=== PATIENT | female | born 1940 | race Caucasian/White ===

== ENCOUNTER 2017-08-18 13:55 | Inpatient (IN) | payer OTHER, MEDICARE ==
[~2017-08-18] VITALS: Ht 157.5 cm; Wt 61.3 kg
[~2017-08-18 13:55] MED LIST: ALENDRONATE SOD70 M1 PO; AMLODIPINE BESY10 M1 PO; CALCIUM600 M3 PO; EPIPEN 2-PAK1 MG/ML IM; EPIPEN ADULT A0.3 MG IM; LEVOTHYROXINE112 MCG PO; LIPITOR10 M1 PO; LOSARTAN POTAS100 M1 PO; METAMUCIL1 PAC PO; PAXIL20 M1 PO; PREDNISONE10 MG PO
--- NOTE | 2017-08-18 14:10 | ED GENERAL ADULT ---
History of Present Illness General Chief Complaint: Lower Extremity Problems Stated Complaint: LEFT SIDE WEAKNESS Vital Signs & Intake/Output Vital Signs & Intake/Output Vital Signs Date Time Temp Pulse Resp B/P B/P Pulse O2 O2 Flow FiO2 Mean Ox Delivery Rate 08/18 1401 98.8 89 16 182/86 99 Room Air Allergies Coded Allergies: MDX - Bee Venom (Bee Venom) (BEES 01/27/11) MDX - Glycerin (Glycerin) (UNKNOWN 11/04/13) Reconcile Medications Alendronate Sodium 70 MG TAB 1 TAB PO QW BONE HEALTH (Reported) Amlodipine Besylate 10 MG TABLET 1 TAB PO DAILY BP (Reported) Atorvastatin Calcium (Lipitor) 10 MG TABLET 1 TAB PO DAILY CHOLESTEROL ( Reported) Calcium/Vitamin D (Calcium + D) 600 MG/200 IU TAB 1 TAB PO BID SUPPLEMENT ( Reported) Epinephrine (Epipen 2-Raza Auto-Injector) 1 MG/ML KIT 0.3 mg IM PRN ANAPHYLAXIS Levothyroxine Sodium 0.112 MG TAB 1 TAB PO DAILY AC THYROID (Reported) Losartan Potassium 100 MG TABLET 1 TAB PO DAILY BP (Reported) PAROXETINE HCL (Paxil) 40 MG TABLET 1 TAB PO DAILY DEPRESSION (Reported) Psyllium Hydrophylic Muciloid (Metamucil Packet) 3.4 GRAM POWD.PACK 1 PAC PO DAILY CONSTIPATION (Reported) Triage Note: PT ARRIVED BY EMS WITH C/O LEFT LEG WEAKNESS, "I FELT LIKE MY LEG WAS DRAGGING WHEN WALKING" PT STATES SHE FELT THE LEG WEAKNESS YESTERDAY WHILE SHOPPING, TODAY SHE FELL 3 TIMES AGAINST FURNITURE BECAUSE HER LEG WAS WEAK. DENIES HEAD INJURY WITH FALL, REPORT FEELING DIZZY EARLIER. Past History Travel History Traveled to [place] past 21 day No Medical History Neurological: TRANSIENT AMNESIA Cardiovascular: hypertension, hyperlipidemia Renal: urinary incontinence Endocrine: hypothyroidism Psychosocial History Who do you live with Spouse Services at Home None What is your primary language [place]i Tobacco Use: Quit >30 days ago ETOH Use: occasional use Illicit Drug Use: denies illicit drug use Departure Departure Condition: Stable Referrals: Dav DEMPSEY,Espinoza Cash (PCP/Family) Departure Forms: Customer Survey General Discharge Information
[2017-08-18] MEDS ORDERED: ARICEPT5 M1 PO (14:31)
[2017-08-18] MEDS ORDERED: VITAMIN B-121000 MC3 PO (14:33)
[2017-08-18] MEDS ORDERED: EPIPEN0.3 MG/0.1 IM (14:34)
[2017-08-18 14:53] LABS: ABSOLUTE BASOPHIL COUNT 0 /CUMM (0.0-0.2); ABSOLUTE EOSINOPHIL COUNT 0.1 /CUMM (0.0-0.7); ABSOLUTE GRANULOCYTE CT 4.2 /CUMM (1.4-6.5); ABSOLUTE MONOCYTE COUNT 0.8 /CUMM (0.10-0.60); BASOPHIL % 0.4 % (0.0-2.0); EOSINOPHIL % 1.3 % (0-5); HEMATOCRIT 39.8 % (37-47); MEAN CORPUSCULAR HGB CONC 33.7 G/DL (33.0-37.0); MEAN PLATELET VOLUME 7.6 FL (7.4-10.4); PLATELET COUNT 278 /CUMM (130-400); RBC DISTRIBUTION WIDTH 14.6 % (11.5-14.5); RED BLOOD CELL CT 4.32 /CUMM (4.20-5.40); WHITE BLOOD CELL COUNT 7.2 /CUMM (4.8-10.8)
--- NOTE | 2017-08-18 16:37 | CT SCAN REPORT ---
EXAMINATION: CT ANGIOGRAM OF THE HEAD CT ANGIOGRAM OF THE NECK CLINICAL INFORMATION: Left weakness, ataxic gait and dizziness. COMPARISON: A post contrast CT scan of the head was obtained. None. TECHNIQUE: A noncontrast axial CT scan was obtained. Test bolus series followed by intravenous administration 95 mL of Optiray 320. Helical imaging was performed in the axial plane from the mediastinum to the skull vertex. The degree of stenosis is based off NASCET criteria. The data was processed at the histology technologist workstation for generation of MIP images. Three-dimensional volume rendered reformatted images were also generated at an offline 3-D workstation. DLP: 1563.52 mGy-cm FINDINGS: CT Head: There is no evidence of acute intracranial hemorrhage or territorial infarction. No abnormal mass-effect or midline shift is seen. Agrawal to white matter differentiation is well preserved. No extra-axial fluid collections are identified. The ventricles are normal in size. There are mild areas of low attenuation in the periventricular and subcortical white matter, consistent with chronic microvascular ischemic change. There are areas of low attenuation in the basal ganglia bilaterally, which may be consistent with lacunar infarcts. On the postcontrast images there is intense and uniform enhancement in the head of the right caudate nucleus, as well as in the anterior aspect of the right putamen. These do not have significant corresponding abnormal density on the noncontrast images. The findings may be consistent with enhancement in subacute areas of infarction or an atypical venous malformation. No other abnormal enhancement is noted elsewhere. There are no acute osseous findings. There is hyperostosis frontalis interna. The soft tissues are unremarkable. The mastoid air cells and visualized portions of the paranasal sinuses are well-aerated. CTA Neck: There is a four-vessel aortic arch, and the left vertebral artery arises directly off the aortic arch, a normal variant. There are atheromatous calcifications at the origin of the left subclavian artery as well as of the arch itself. The brachiocephalic and left common carotid arteries appear normal. There are also atheromatous calcifications at the origin of the right subclavian artery. The common carotid arteries bilaterally are widely patent. There are mild atheromatous calcifications at the carotid bifurcations bilaterally, but there is no significant stenosis. The cervical internal carotid arteries are slightly tortuous but are patent throughout the neck extending intracranially. As described above, the left vertebral artery arises directly off the aortic arch. The origin of the right vertebral artery has a minimal amount of atheromatous calcification. The right vertebral artery is dominant. The vertebral arteries are patent throughout their cervical course extending intradurally. Nonvascular: There is patchy ground glass opacification in the lateral right upper lobe. The remaining lung santos appear well-aerated. The thyroid gland appears normal. There is no cervical lymphadenopathy. The submandibular and parotid glands appear normal. There are degenerative changes of the bilateral temporomandibular joints. There are [id number] multilevel spondylitic changes in the cervical spine with narrowing of intervertebral disc height, degenerative anterolistheses of C4 on C5 and C5 on C6, as well as facet arthropathy. CTA Head: In the anterior circulation, the distal internal carotid arteries within the neck appear normal. The intracranial internal carotid arteries demonstrate atheromatous calcifications in the cavernous sinuses. The internal carotid artery bifurcations appear normal. There are areas of slight irregularity of the middle cerebral arteries, most prominent in the distal M1 segment of the left middle cerebral artery, and in the proximal M2 segment of the right middle cerebral artery. The anterior cerebral arteries appear normal bilaterally. The anterior communicating artery appears normal. No aneurysms or vascular malformations are demonstrated. In the posterior circulation, the right vertebral artery is dominant. There is calcification at the proximal basilar artery, and the basilar artery has slightly irregular caliber. There is slight irregularity of the proximal P2 segments of the posterior cerebral arteries bilaterally. There are no aneurysms or vascular malformations. The venous sinuses opacify normally. IMPRESSION: 1. There is intense enhancement in the right caudate nucleus and anterior right putamen, which may be consistent with enhancement in areas of subacute infarction. An atypical venous malformation cannot be excluded. Recommend MRI scan of the brain without and with contrast for further assessment. 2. No other territorial infarcts, masses or abnormal enhancement are demonstrated. There is no evidence of hemorrhage. 3. There is no significant stenosis in the cervical and intracranial circulations, but there is mild multilevel atheromatous calcification and irregularity of the vessels as described above. 4. There is an area of ground glass opacification in the right upper lobe. This could be further assessed with chest x-ray and/or CT scan of the chest. 5. This critical result was discussed with Donny Damon by telephone on 08/18/2017 at 4:00 PM and it was ascertained that the content and urgency of the report was understood at the time of direct communication.
--- NOTE | 2017-08-18 18:00 | ED NEURO DEFICIT/STROKE ---
History of Present Illness General Chief Complaint: Lower Extremity Problems Stated Complaint: LEFT SIDE WEAKNESS Source: patient, family Exam Limitations: no limitations Vital Signs & Intake/Output Vital Signs & Intake/Output Vital Signs Date Time Temp Pulse Resp B/P B/P Pulse O2 O2 Flow FiO2 Mean Ox Delivery Rate 08/18 1909 152/82 08/18 1821 98.8 80 18 152/82 94 Room Air 08/18 1604 99.0 76 18 172/84 95 Room Air 08/18 1401 98.8 89 16 182/86 99 Room Air Allergies Coded Allergies: glycerin (UNKNOWN 08/18/17) venom-honey bee (UNKNOWN 08/18/17) Reconcile Medications Amlodipine Besylate 10 MG TABLET 1 TAB PO DAILY HEART (Reported) Atorvastatin Calcium (Lipitor) 10 MG TABLET 1 TAB PO DAILY CHOLESTEROL ( Reported) Calcium (Elemental-Fr Calcarb) (Calcium) 600 MG CALCIUM (1,500 MG) TABLET 1 TAB PO DAILY SUPPLEMENT (Reported) Cyanocobalamin (Vitamin B-12) 1,000 MCG TABLET 1 TAB PO DAILY VITAMIN SUPPORT (Reported) Donepezil HCl (Aricept) 5 MG TABLET 1 TAB PO QPM DEMENTIA (Reported) Epinephrine (Epipen) 0.3 MG/0.3 ML AUTO.INJCT 1 INJ IM DAILY PRN BEE STING ( Reported) Levothyroxine Sodium 112 MCG TABLET 1 TAB PO DAILY AC THYROID (Reported) Losartan Potassium 100 MG TABLET 1 TAB PO DAILY HEART (Reported) Paroxetine HCl (Paxil) 20 MG TABLET 2 TAB PO DAILY MENTAL HEALTH (Reported) Triage Note: PT ARRIVED BY EMS WITH C/O LEFT LEG WEAKNESS, "I FELT LIKE MY LEG WAS DRAGGING WHEN WALKING" PT STATES SHE FELT THE LEG WEAKNESS YESTERDAY WHILE SHOPPING, TODAY SHE FELL 3 TIMES AGAINST FURNITURE BECAUSE HER LEG WAS WEAK. DENIES HEAD INJURY WITH FALL, REPORT FEELING DIZZY EARLIER. Triage Nurses Notes Reviewed? yes Onset: Gradual Duration: day(s): Timing: unknown Severity: moderate New Weakness: LLE Vision Problem? No Glaucoma? No Impaired Ability: unable to walk Baseline: alert, oriented x 3 Associated Symptoms: trouble walking HPI: 77-year-old female history of hypertension, cognitive decline presenting for left-sided weakness and multiple falls since yesterday. Patient states that yesterday around 2 PM she felt her left leg feel weak. Since that time she has had 3 falls, no head trauma. States that intermittently she will feel dizzy when she walks she veers to the left. Her daughter feels that her face has been drooping on the left. On arrival, she is mild to moderately hypertensive to 170s and 180s over 100. She feels scared and unsafe walking due to fear of falling. (WONG MARQUES MD) Past History Travel History Traveled to [place] past 21 day No Medical History Any Pertinent Medical History? see below for history Neurological: TRANSIENT AMNESIA Cardiovascular: hypertension, hyperlipidemia Renal: urinary incontinence Endocrine: hypothyroidism Surgical History Surgical History: non-contributory Psychosocial History Who do you live with Spouse Services at Home None What is your primary language Citizen Of [place] Tobacco Use: Quit >30 days ago ETOH Use: occasional use Illicit Drug Use: denies illicit drug use Family History Hx Contributory? No (WONG MARQUES MD) Review of Systems Review of Systems Constitutional: Reports: weakness. Denies: fever, malaise. EENTM: Denies: no symptoms. Respiratory: Denies: no symptoms. Cardiovascular: Denies: no symptoms. GI: Denies: no symptoms. Neurological/Psychological: Reports: other (Dizziness). (WONG MARQUES MD) Physical Exam Physical Exam General Appearance: well developed/nourished, no apparent distress, alert, awake Cranial Nerves: normal hearing, normal speech, PERRL Comments: General: Well appearing, well nourished Head: Atraumatic, no defomities Ears: Normal inspection, no trauma Nose: Normal inspection, no discharge or deformity Eyes: No discharge, no injection, no nystagmus CV: Normal rate, no peripheral edema Lungs: No respiratory distress, breathing non-labored GI: Abdomen soft, NT/ND, no palpable organomegaly Skin: Warm, dry Neuro: Alert, awake. CN 2-12 intact, left leg mildly weak compared to left. Finger-nose and heel-palafox intact. Gait unsteady, falls to the left requiring assistance. Psych: Mood appropriate, normal affect NIH stroke scale 0 Core Measures CVA/TIA Diagnosis: Yes NIH Stroke Scale NIH Stroke Scale Response Value Level of Consciousness alert 0 LOC Questions answers both correctly 0 LOC Commands obeys both correctly 0 Best Gaze normal 0 Visual Manjarrez no visual loss 0 Facial Paresis normal 0 Motor Arm - Left no drift 0 Motor Arm - Right no drift 0 Motor Leg - Left no drift 0 Motor Leg - Right no drift 0 Limb Ataxia no ataxia 0 Sensory normal 0 Best Language no aphasia 0 Dysarthria normal articulation 0 Extinction and Inattention no neglect 0 Total 0 Date Last Known Well: 08/17/17 Symptom Start Date: 08/17/17 Reason tPA not ordered Medical Contraindication (>24 hours, NIH score 0) Sepsis Present: No Sepsis Focused Exam Completed? No (JERALD DEMPSEY,WONG) Progress Differential Diagnosis: electrolyte imbalance, hypoglycemia, intracranial Hem., intracranial mass/tumor, stroke Plan of Care: Orders Procedure Date/time Status Heart Healthy Diet 08/19 B Active CBC WITHOUT DIFFERENTIAL 08/19 599 Active BASIC ELECTROLYTES PLUS BUN&CR 08/19 599 Active ECHOCARDIOGRAM 08/18 1917 Active PT Evaluate & Treat 08/18 1916 Active Pathway - chart 08/18 1916 Active House Staff 08/18 1916 Active Patient Data 08/18 1916 Active Code Status 08/18 1916 Active Patient Data 08/18 1838 Active Patient Data 08/18 1753 Active Misc Message 08/18 1740 Active ED Holding Orders 08/18 1740 Active Admit to inpatient 08/18 1740 Active Code Status 08/18 1740 Complete Intake & Output 08/18 1500 Active TSH REFLEX 08/18 1445 Active URINALYSIS 08/18 1435 Active TROPONIN LEVEL 08/18 1435 Active COMPREHENSIVE METABOLIC PANEL 08/18 1435 Active CBC WITHOUT DIFFERENTIAL 08/18 1435 Complete EKG 08/18 1435 Active Lab Add-on Test 08/18 UNK Active VTE Mechanical Prophylaxis 08/18 UNK Active MISTAKE 08/18 UNK Active Telemetry/Solution Director 08/18 UNK Active EKG 08/18 UNK Active Current Medications Sig/Patricio Start time Last Medication Dose Stop Time Status Admin Aspirin 81 MG DAILY 08/19 899 UNVr (Aspirin) Enoxaparin Sodium 40 MG DAILY 08/19 899 UNVr (Lovenox) Aspirin 325 MG ONCE ONE 08/18 1929 UNVr (Aspirin) 08/18 1930 Atorvastatin Calcium 80 MG 1700 08/18 1929 UNVr (Lipitor) Acetaminophen 650 MG Q6P PRN 08/18 1914 UNVr (Tylenol) Ibuprofen 600 MG Q6P PRN 08/18 1914 UNVr (Motrin) Oxycodone/ 2 TAB Q6P PRN 05/18 1915 UNVr Acetaminophen (Percocet) Laboratory Tests 08/18/17 1445: Anion Gap 9, Estimated GFR > 60, BUN/Creatinine Ratio 37.1 H, Glucose 93, Calcium 9.3, Total Bilirubin 0.5, AST 29, ALT 31, Alkaline Phosphatase 46, Troponin I < 0.01, Total Protein 6.7, Albumin 4.2, Globulin 2.5, Albumin/ Globulin Ratio 1.7, TSH &T3 &Free T4 Intrp Pending, CBC w Diff NO MAN DIFF REQ, RBC 4.32, MCV 92.0, MCH 31.0, MCHC 33.7, RDW 14.6 H, MPV 7.6, Gran % 59.0, Lymphocytes % 27.8, Monocytes % 11.5 H, Eosinophils % 1.3, Basophils % 0.4, Absolute Granulocytes 4.2, Absolute Lymphocytes 2.0, Absolute Monocytes 0.8 H, Absolute Eosinophils 0.1, Absolute Basophils 0 Diagnostic Imaging: Viewed by Me: CT Scan. Discussed w/RAD: Radiology Read. Initial ED EKG: normal intervals, normal p-waves, normal QRS complex, NSR, rate (72), PAC, Left axis deviation, no ST segment changes Comments: Pt displays subjective left sided weakness and gait instability, leaning to the left. CT/CTA ordered showing possible right sided subacute stroke. Pt remains hypertensive to 170/100. Ordered for home norvasc to lower BP gradually. Given pt's multiple falls with CT findings suggesting subacute infact, pt will require admission for BP control and potentially MRI brain +/- neurology consult and PT evaluation. (JERALD DEMPSEY,WONG) Departure Departure Time of Disposition: 1757 Disposition: STILL A PATIENT Condition: Stable Clinical Impression Primary Impression: Multiple falls Secondary Impressions: Stroke (cerebrum) Qualifiers: CVA mechanism: unspecified Qualified Code: I63.9 - Cerebral infarction, unspecified Referrals: Dav DEMPSEY,Espinoza Cash (PCP/Family) Departure Forms: Customer Survey General Discharge Information Admission Note Spoke With: Jada Mcduffie MD Documentation of Exam: Documentation of any treatments & extenuating circumstances including Concerns Regarding Discharge (functional status, medication knowledge or non-compliance, living conditions, etc.) that warrant an admission rather than observation: [Pt has CT findings consistent with stroke. She is at risk of worsening stroke leading to physical and cognitive deficits, and even . Her blood pressure needs to be closely monitored and controlled, potentially with IV medications. She would benefit from further inpatient MRI imaging and an inpatient neurology consult. Her unsteady gait makes her at risk for further falls, physical injury and .] (JERALD DEMPSEY,WONG) Departure Comments I agree with the physician's documentation above. (David SNOWDEN,Lam Seals) ED Attending Observation Initial Observation Note: I have seen and personally examined GANESH BOWLING on 08/18/17 at 1800. I agree with the current emergency department documentation. The disposition (admission or discharge) is uncertain at this time, she needs a period of observation for the following reason(s): The ED Nurse caring for this patient has been personally informed as to what the patient is being observed for. (WONG MARQUES MD)
--- NOTE | 2017-08-18 18:04 | History & Physical ---
Kathy DEMPSEY,Donny 08/18/17 2255: General Information and HPI MD Statement: I have seen and personally examined GANESH BOWLING and documented this H&P. The patient is a 77 year old F who presented with a patient stated chief complaint of [L sided weakness]. Source of Information: patient, family, old records Exam Limitations: no limitations History of Present Illness: Patient is a 77-year-old female with a PMH significant for HTN, HLD, hypothyroidism, depression, osteoporosis who presented complaining of approximately 1 day history of left leg weakness. She first noticed left leg weakness yesterday at approximately 1500 while she was shopping at [employer] She felt as though her left leg was "dragging". Her symptoms persisted and when she returned home she suffered for falls yesterday afternoon. Denies any associated chest pain, palpitations, lightheadedness, jerking motion with these falls, she did not lose consciousness and denies head strike. She states that she does feel "dizzy" and when asked to elaborate she states that she just felt unsteady when up and walking, it did not occur when she transition from sitting to standing, and she did not feel as though the room was spinning or she was lightheaded. She does not believe that she tripped either, she just feels like her leg gave out due to weakness. Today she suffered one more fall, and drove herself to her PCPs office and was from there sent to the ED. patient lives by herself, and is very active at home. Review of systems is positive for chronic diarrhea, which has been worked up in the past, nonproductive cough. Of note she suffered a tick bite last year and developed a targetoid rash and received no treatment for this. Allergies/Medications Allergies: Coded Allergies: glycerin (UNKNOWN 08/18/17) venom-honey bee (UNKNOWN 08/18/17) Home Med list Amlodipine Besylate 10 MG TABLET 1 TAB PO DAILY HEART (Reported) Atorvastatin Calcium (Lipitor) 10 MG TABLET 1 TAB PO DAILY CHOLESTEROL ( Reported) Calcium (Elemental-Fr Calcarb) (Calcium) 600 MG CALCIUM (1,500 MG) TABLET 1 TAB PO DAILY SUPPLEMENT (Reported) Cyanocobalamin (Vitamin B-12) 1,000 MCG TABLET 1 TAB PO DAILY VITAMIN SUPPORT (Reported) Donepezil HCl (Aricept) 5 MG TABLET 1 TAB PO QPM DEMENTIA (Reported) Epinephrine (Epipen) 0.3 MG/0.3 ML AUTO.INJCT 1 INJ IM DAILY PRN BEE STING ( Reported) Levothyroxine Sodium 112 MCG TABLET 1 TAB PO DAILY AC THYROID (Reported) Losartan Potassium 100 MG TABLET 1 TAB PO DAILY HEART (Reported) Paroxetine HCl (Paxil) 20 MG TABLET 2 TAB PO DAILY MENTAL HEALTH (Reported) Past History Travel History Traveled to [place] past 21 day No Medical History Neurological: dementia, TRANSIENT AMNESIA Cardiovascular: hypertension, hyperlipidemia Gastrointestinal: chronic diarrhea Renal: urinary incontinence Endocrine: hypothyroidism Surgical History Surgical History: none Past Family/Social History Family History Relations & Conditions if any Relation not specified for: *No pertinent family history Psychosocial History Where do you live? Home Who Do You Live With? self Services at Home: None Primary Language: Guyanese Smoking Status: Former Smoker (20 year hx) ETOH Use: occasional use Illicit Drug Use: denies illicit drug use Functional Ability ADLs Independent: dressing, eating, toileting, bathing. Ambulation: independent IADLs Independent: shopping, housework, finances, food prep, telephone, transportation , medication admin. Review of Systems Review of Systems Constitutional: Denies: chills, fever, weakness. Cardiovascular: Denies: chest pain, orthopena, palpitations, syncope. Respiratory: Reports: cough. Denies: orthopnea, short of breath. GI: Reports: diarrhea (chronic). Denies: abdominal pain, melena, nausea, bloody stool, vomiting. Genitourinary: Denies: discharge, dysuria, frequency. Musculoskeletal: Denies: joint pain, joint swelling, muscle pain. Skin: Denies: rash. Neurological/Psychological: Reports: dementia. Date of Last Mammogram: 12/03/15 Date of Last Colonoscopy: 04/04/10 Exam & Diagnostic Data Physical Exam General Appearance Alert, Oriented X3, Cooperative, No Acute Distress Skin Temp/Moisture Exam: Warm/Dry HEENT ecchymosis on the L forehead Cardiovascular Regular Rate, Normal S1, Normal S2, No Murmurs, regularly irregular rhythm Lungs Clear to Auscultation, Normal Air Movement Abdomen Normal Bowel Sounds, Soft, No Tenderness Neurological Normal Speech, Normal Tone, Sensation Intact, Cranial Nerves 3-12 NL, brisk lower extremity reflexex bilaterally , 6 beat clonus of the LLE, slight L facial droop, 4/5 LLE strength, 5/5 strength rest of extremities, positive babinski of LLE, Extremities No Clubbing, No Cyanosis, No Edema Last 24 Hrs of Labs/Gordon: Laboratory Tests 08/18/17 1445: Anion Gap 9, Estimated GFR > 60, BUN/Creatinine Ratio 37.1 H, Glucose 93, Calcium 9.3, Total Bilirubin 0.5, AST 29, ALT 31, Alkaline Phosphatase 46, Troponin I < 0.01, Total Protein 6.7, Albumin 4.2, Globulin 2.5, Albumin/ Globulin Ratio 1.7, Vitamin B12 Pending, Folate Pending, TSH &T3 &Free T4 Intrp Pending, CBC w Diff NO MAN DIFF REQ, RBC 4.32, MCV 92.0, MCH 31.0, MCHC 33.7, RDW 14.6 H, MPV 7.6, Gran % 59.0, Lymphocytes % 27.8, Monocytes % 11.5 H, Eosinophils % 1.3, Basophils % 0.4, Absolute Granulocytes 4.2, Absolute Lymphocytes 2.0, Absolute Monocytes 0.8 H, Absolute Eosinophils 0.1, Absolute Basophils 0 Diagnostic Data EKG Results poor ekg study, with flat rhythm strip/lead II, will repeat Other Results CTA head and neck FINDINGS: CT Head: There is no evidence of acute intracranial hemorrhage or territorial infarction. No abnormal mass-effect or midline shift is seen. Agrawal to white matter differentiation is well preserved. No extra-axial fluid collections are identified. The ventricles are normal in size. There are mild areas of low attenuation in the periventricular and subcortical white matter, consistent with chronic microvascular ischemic change. There are areas of low attenuation in the basal ganglia bilaterally, which may be consistent with lacunar infarcts. On the postcontrast images there is intense and uniform enhancement in the head of the right caudate nucleus, as well as in the anterior aspect of the right putamen. These do not have significant corresponding abnormal density on the noncontrast images. The findings may be consistent with enhancement in subacute areas of infarction or an atypical venous malformation. No other abnormal enhancement is noted elsewhere. There are no acute osseous findings. There is hyperostosis frontalis interna. The soft tissues are unremarkable. The mastoid air cells and visualized portions of the paranasal sinuses are well-aerated. CTA Neck: There is a four-vessel aortic arch, and the left vertebral artery arises directly off the aortic arch, a normal variant. There are atheromatous calcifications at the origin of the left subclavian artery as well as of the arch itself. The brachiocephalic and left common carotid arteries appear normal. There are also atheromatous calcifications at the origin of the right subclavian artery. The common carotid arteries bilaterally are widely patent. There are mild atheromatous calcifications at the carotid bifurcations bilaterally, but there is no significant stenosis. The cervical internal carotid arteries are slightly tortuous but are patent throughout the neck extending intracranially. As described above, the left vertebral artery arises directly off the aortic arch. The origin of the right vertebral artery has a minimal amount of atheromatous calcification. The right vertebral artery is dominant. The vertebral arteries are patent throughout their cervical course extending intradurally. Nonvascular: There is patchy ground glass opacification in the lateral right upper lobe. The remaining lung santos appear well-aerated. The thyroid gland appears normal. There is no cervical lymphadenopathy. The submandibular and parotid glands appear normal. There are degenerative changes of the bilateral temporomandibular joints. There are [id number] multilevel spondylitic changes in the cervical spine with narrowing of intervertebral disc height, degenerative anterolistheses of C4 on C5 and C5 on C6, as well as facet arthropathy. CTA Head: In the anterior circulation, the distal internal carotid arteries within the neck appear normal. The intracranial internal carotid arteries demonstrate atheromatous calcifications in the cavernous sinuses. The internal carotid artery bifurcations appear normal. There are areas of slight irregularity of the middle cerebral arteries, most prominent in the distal M1 segment of the left middle cerebral artery, and in the proximal M2 segment of the right middle cerebral artery. The anterior cerebral arteries appear normal bilaterally. The anterior communicating artery appears normal. No aneurysms or vascular malformations are demonstrated. In the posterior circulation, the right vertebral artery is dominant. There is calcification at the proximal basilar artery, and the basilar artery has slightly irregular caliber. There is slight irregularity of the proximal P2 segments of the posterior cerebral arteries bilaterally. There are no aneurysms or vascular malformations. The venous sinuses opacify normally. IMPRESSION: 1. There is intense enhancement in the right caudate nucleus and anterior right putamen, which may be consistent with enhancement in areas of subacute infarction. An atypical venous malformation cannot be excluded. Recommend MRI scan of the brain without and with contrast for further assessment. 2. No other territorial infarcts, masses or abnormal enhancement are demonstrated. There is no evidence of hemorrhage. 3. There is no significant stenosis in the cervical and intracranial circulations, but there is mild multilevel atheromatous calcification and irregularity of the vessels as described above. 4. There is an area of ground glass opacification in the right upper lobe. This could be further assessed with chest x-ray and/or CT scan of the chest. Assessment/Plan Assessment: Patient is a 77-year-old female with a PMH significant for HTN, HLD, hypothyroidism, depression, osteoporosis who presented complaining of approximately 1 day history of left leg weakness. Physical exam shows left lower extremity weakness, positive kind, mild left sided facial droop, clonus of the right lower extremity, brisk reflexes of the lower extremities bilaterally. Vital signs on presentation: T 98.8, P 89, RR 16, BP 182/86, saturating 99% on room air Labs: PROFESSOR OF ARCHAEOLOGY unremarkable, BUN 26, troponin <0.01 CTA head and neck showed enhancement in the right caudate nucleus and anterior right putamen Problem list #Possible CVA #Chronic medical problems including HTN, hypothyroidism, depression, osteoporosis Plan -Admit to telemetry -Continuous telemetry monitoring -Serial neuro checks -MRI head with and without chris to further assess findings of CTA head -Neurology consult placed -Echocardiogram -Repeat EKG -Begin aspirin -TSH, B12, folate -Continue home meds including levothyroxine, Aricept, statin -Hold antihypertensives and paroxetine for now -PT/OT evaluation DVT prophylaxis: Subcutaneous heparin, Alps Diet: Heart healthy diet CODE STATUS: Full code As Ranked By This Provider Problem List: 1. Stroke (cerebrum) Qualifiers CVA mechanism: unspecified Qualified Code: I63.9 - Cerebral infarction, unspecified 2. Multiple falls Core Measures/Misc (12/18) Acute Coronary Syndrome ACS Diagnosis: No Congestive Heart Failure Congestive Heart Failure Diagnosis No Cerebrovascular Accident CVA/TIA Diagnosis: Yes NIH Stroke Scale: Total 2 Date Last Known Well: 08/17/17 Time Last Known Well: 1500 Symptom Start Date: 08/17/17 Symptom Start Time: 1500 Reason tPA not ordered Medical Contraindication Swallow Evaluation Pass Current/Past Hx AFib/AFlutter No VTE (View Protocol) VTE Risk Factors Age>40 No Mechanical VTE Prophylaxis d/t N/A MechProphylax Ordered No VTE Pharm Prophylaxis d/t NA PharmProphylax ordered Sepsis (View protocol) Sepsis Present: No Ariel DEMPSEY,Brooke 08/18/171813: Exam & Diagnostic Data Last 24 Hrs of Vital Signs/I&O Vital Signs Date Time Temp Pulse Resp B/P B/P Pulse O2 O2 Flow FiO2 Mean Ox Delivery Rate 08/19 0616 98.1 81 20 142/82 96 Room Air 08/18 2211 97.7 77 20 148/114 92 08/18 2029 98.2 77 24 158/120 92 08/18 1958 98.3 80 18 158/70 93 Room Air 08/18 1909 152/82 08/18 1821 98.8 80 18 152/82 94 Room Air 08/18 1604 99.0 76 18 172/84 95 Room Air 08/18 1401 98.8 89 16 182/86 99 Room Air Intake & Output 08/19 1600 08/19 0800 08/19 0000 Intake Total Output Total Balance Patient 61.008 kg Weight Weight Bed scale Measurement Method Resident Review Statement Resident Statement: examined this patient, discussed with internal salesperson, agreed with internal salesperson Other Findings: This is a 77-year-old female w/ past medical history of hypertension, hyperlipidemia, osteoporosis, depression, hypothyroidism, remote history of amnesia and fugue state, lung nodule that has been worked up with benign findings, who comes in for chief complaint of lower extremely weakness. Per patient, yesterday she was at [facility] around 2:30 PM when she noticed that she seemed to have some difficulty ambulating. She initially attributed it to a broken shopping cart but when she was in the parking lot she noted her left leg was dragging and she had to shuffle to make it to her car. Subsequently, she went home and had 4 falls with 3 of them yesterday and 1 this AM. Denies any head strike, loss of consciousness, or loss of bladder or bowel control. She does endorse some dizziness while walking. She denies any headache, blurry vision, sore throat, recent illness, palpitation , nausea, vomiting, abdominal pain, nausea, vomiting. She does endorse chest pain w/ last episode on Monday. She said that it is exertional in nature and resolves with rest. It is happening for the past 2-3 months. She does not have a knowledge manager has never had this worked up. The pain does not radiate.She also has hx of tickbite with target rash but never treated. Physical exam as above. Highlights as follows- Cranial nerves 2-12 where normal. Strength equal and symmetric in bilateral upper extremities and sensation intact. Sensation intact in bilateral lower extremities. She did have 4-5 strength in left lower extremity and bilateral 5 strength in right lower extremity. Initially, she had a 5 beat clonus in bilateral lower extremities but upon repeat testing was only present in the right lower extremity. Reflexes are 3+ brisk and knee and ankle bilateral lower extremity and 2+ in upper extremity. CT of head and neck shows intense enhancement in the right caudate nucleus and anterior right putamen which may be consistent with enhancement in areas of subacute infarction. Additionally, an atypical venous malformation cannot be excluded. Assessment: This is a 77-year-old female with history significant for hypertension, hyperlipidemia, osteoporosis, depression, hypothyroidism, remote history of amnesia and fugue state, lung nodule that has been worked up with benign findings, who comes in for chief complaint of left lower extremity weakness with CTA suspicious for possible subacute infarction. This time the presentation is concerning for ischemic event, but cannot rule out neoplasm or unusual vascular malformation. As such patient will be admitted to telemetry floor for further management. Plan: 1. Possible CVA: * MRI with and without gadolinium * ASA * Statin * Allow permissive hypertension * Monitor on telemetry * Echo with bubble study * Neuro check * Repeat EKG * TSH * B12 * Folate * Neuro consult Hypertension: * Continue to monitor * Hold antihypertensives for permissive hypertension Hypothyroidism: * Continue home medication Depression: * Will hold her paroxetine. Dementia: * Hold Aricept fc chem ppx hh Katerina Shea 08/18/177: Attending MD Review Statement Attending Statement Attending MD Statement: examined this patient, discuss w/resident/PA/SCALLOP BINDER, agreed w/resident/PA/SCALLOP BINDER, reviewed EMR data (avail), reviewed images, amended to note Attending Assessment/Plan: CC: Left leg weakness PMH: HTN, HLD, depression, hypothyroidism, osteoporosis, dementia Patient was sent to ER by primary care physician for left leg weakness and multiple falls. Patient states that yesterday at around 3 PM when she was at [facility] she noticed that her left leg was weak and she had to drag it. After going home she fell 3 times because of left leg giving out, no head trauma, no dizziness or loss of consciousness, no palpitations or chest pain before the fall. She did not seek any medical attention for it. This morning she fell again so she went to primary care physician who suggested her to go to ER. Patient did not notice any facial weakness or drooling, drooping, double vision, blurry vision, upper extremity weakness or any other associated symptoms. Of note She had tick bite approximately one year back, had target lesion but was not treated. She is compliant with all her medications. 12 point ROS unremarkable. Patient states that she failed for dementia test sometime last year, approximately 1 month back she requested her primary care physician to start some medication and she was started on Aricept. Vitals: Temperature 99.0, pulse 89, RR 16, blood pressure 182/86, saturating 99% on room air On exam: A O 3, cooperative, no acute distress, neck supple, JVD normal, no lymphadenopathy, mucosa moist, no dependent edema, no obvious skin rashes or inflammation CVS: S1-S2, RRR. RS: Clear to auscultate bilaterally. Abdomen: Soft , NT, ND, bowel sounds present. Cranial nerves 3-12 intact, no sensory deficit, cerebellar signs negative, reflexes +3 in all extremities, left lower extremity strength 4/5, strength 5/5 in rest of the extremities. Gait unsteady secondary to left leg weakness she puts pressure more on right side CTA head and neck: 1. There is intense enhancement in the right caudate nucleus and anterior right putamen, which may be consistent with enhancement in areas of subacute infarction. An atypical venous malformation cannot be excluded. Recommend MRI scan of the brain without and with contrast for further assessment. 2. No other territorial infarcts, masses or abnormal enhancement are demonstrated. There is no evidence of hemorrhage. 3. There is no significant stenosis in the cervical and intracranial circulations, but there is mild multilevel atheromatous calcification and irregularity of the vessels as described above. 4. There is an area of ground glass opacification in the right upper lobe. This could be further assessed with chest x-ray and/or CT scan of the chest. 5. This critical result was discussed with Donny Damon by telephone on 08/18/2017 at 4:00 PM and it was ascertained that the content and urgency of the report was understood at the time of direct communication. Assessment and plan 77 year old female with history significant for HTN, HLD, ex-smoker presented for left leg weakness that started yesterday. She states that she has been dragging her left leg. She fell 4 times since the onset of weakness, no trauma or loss of consciousness. On examination the strength is decreased to 4/5 on left lower extremity with gait abnormality. She also is hyperreflexive in all extremities. CT he was obtained which showed suspected right caudate nucleus and right putamen subacute infarction but at the same time vascular malformation could not be excluded. Her NIHSS is 1, she was out of window for tPA. There is no obvious thromboembolic phenomena in major vessels on CTA head and neck. We will admit her on telemetry and get MRI with and without contrast to confirm that this is ischemia. Obtain neurology opinion + Left leg weakness : Suspected ischemic stroke + History of HTN, HLD, depression, hypothyroidism, osteoporosis, dementia - Admit to telemetry - Continuous telemetry monitoring - MRI brain with and without contrast - 2-D echocardiogram in a.m. - DVT prophylaxis - Obtain lipid profile - Continue aspirin 325 today and 81 mg tomorrow and atorvastatin 40 mg daily starting today - Swallow evaluation was normal - Neurologic consult - Serial neuro checks - Check TSH, tick panel, B12, folate - Adequate pain control - Permissive hypertension, hold amlodipine and losartan, continue rest of her medications - DVT prophylaxis - OT PT evaluation
[2017-08-18 20:29] VITALS: BP 158/120
[2017-08-18 22:11] VITALS: BP 148/114
--- NOTE | 2017-08-18 22:30 | Admission Certification ---
Admission Certification Certification Statement - As attending physician, I certify that at the time of - admission, based on clinical presentation, severity of - symptoms, need for further diagnostic testing and - therapeutic interventions, and risk of adverse outcomes - without in-hospital treatment, in my clinical assessment, - this patient requires an acute hospital stay for a minimum - of two nights or longer. I have also considered psychsocial - factors such as support system, advanced age, financial - issues, cognitive issues, and failed out-patient treatments, - past re-admission history, safety of patient, and lack of - compliance as applicable. Specific rationale supporting this admission is: Left lower extremity weakness, suspected ischemic stroke
--- NOTE | 2017-08-19 03:54 | PN- Housestaff ---
See Addendum Subjective Follow-up For: CVA Tele-Events Since Last Visit: She was in atrial bigemini for part of the night then resumed NSR. She had a brief 10 sec run of hr 150s, unsrue if SVT or just sinus tach. Subjective: Saw pt at bedside this AM. No acute overnight events. Notably, while in ED pt got a dose of anti-hypertensive meds thought BP was only in 150s systolic. She stated her l. leg had some constant twitching this AM. It wasn't painful, but kept her awake. Review of Systems Constitutional: Reports: weakness. Denies: chills. EENTM: Reports: no symptoms. Cardiovascular: Denies: chest pain, palpitations. Respiratory: Denies: cough, short of breath. Gastrointestinal: Denies: abdominal pain. Genitourinary: Reports: no symptoms. Musculoskeletal: Reports: no symptoms. Skin: Reports: no symptoms. Objective Last 24 Hrs of Vital Signs/I&O Vital Signs Date Time Temp Pulse Resp B/P B/P Pulse O2 O2 Flow FiO2 Mean Ox Delivery Rate 08/18 2211 97.7 77 20 148/114 92 08/18 2028 98.2 77 24 158/120 92 08/18 1958 98.3 80 18 158/70 93 Room Air 08/18 1909 152/82 08/18 1821 98.8 80 18 152/82 94 Room Air 08/18 1604 99.0 76 18 172/84 95 Room Air 08/18 1401 98.8 89 16 182/86 99 Room Air Intake & Output 08/19 0800 08/19 0000 08/18 1600 Intake Total 0 Output Total 0 Balance 0 Intake, Oral 0 Output, Urine 0 Patient 61.008 kg 56.699 kg Weight Weight Bed scale Reported by Patient Measurement Method Physical Exam General Appearance: Alert, Oriented X3, Cooperative, No Acute Distress HEENT: Atraumatic, PERRLA, EOMI Neck: Supple Cardiovascular: regularly regular Lungs: Normal Air Movement Abdomen: Soft, No Tenderness Neurological: Normal Speech Extremities: No Edema Current Medications: Current Medications Sig/Patricio Start time Last Medication Dose Route Stop Time Status Admin Acetaminophen 650 MG Q6P PRN 08/18 1914 AC PO Amlodipine Besylate 10 MG ONCE ONE 08/18 1744 DC 08/18 PO 05/18 1746 1909 Aspirin 81 MG DAILY 08/19 09 AC PO Aspirin 325 MG ONCE ONE 08/18 1929 DC 08/18 PO 08/18 Atorvastatin Calcium 40 MG 0 08/19 170 AC PO Atorvastatin Calcium 80 MG 08/18 DC 08/18 PO 2223 Enoxaparin Sodium 40 MG DAILY 08/19 0900 AC SC Ibuprofen 600 MG Q6P PRN 08/18 1914 AC PO Levothyroxine Sodium 0.112 MG DAILY AC 08/19 0700 AC 08/19 PO 0535 Oxycodone/ 2 TAB Q6P PRN 08/18 1914 AC Acetaminophen PO Last 24 Hrs of Lab/Gordon Results Last 24 Hrs of Labs/Mics: Laboratory Tests 08/19/17 0658: Sodium Pending, Potassium Pending, Chloride Pending, Carbon Dioxide Pending, Anion Gap Pending, BUN Pending, Creatinine Pending, BUN/Creatinine Ratio Pending , Triglycerides Pending, Cholesterol Pending, LDL Cholesterol, Calc Pending, HDL Cholesterol Pending, Cholesterol/HDL Ratio Pending, CBC w Diff Pending, WBC Pending, RBC Pending, Hgb Pending, Hct Pending, MCV Pending, MCH Pending, MCHC Pending, RDW Pending, Plt Count Pending, MPV Pending 08/18/17 1445: Anion Gap 9, Estimated GFR > 60, BUN/Creatinine Ratio 37.1 H, Glucose 93, Calcium 9.3, Total Bilirubin 0.5, AST 29, ALT 31, Alkaline Phosphatase 46, Troponin I < 0.01, Total Protein 6.7, Albumin 4.2, Globulin 2.5, Albumin/ Globulin Ratio 1.7, Vitamin B12 805, Folate 15.3, Free T4 1.44, Total T3 1.09, TSH &T3 &Free T4 Intrp 7.850 H, CBC w Diff NO MAN DIFF REQ, RBC 4.32, MCV 92.0, MCH 31.0, MCHC 33.7, RDW 14.6 H, MPV 7.6, Gran % 59.0, Lymphocytes % 27.8, Monocytes % 11.5 H, Eosinophils % 1.3, Basophils % 0.4, Absolute Granulocytes 4.2, Absolute Lymphocytes 2.0, Absolute Monocytes 0.8 H, Absolute Eosinophils 0.1, Absolute Basophils 0 Assessment/Plan Assessment: Assessment: This is a 77-year-old female with history significant for hypertension, hyperlipidemia, osteoporosis, depression, hypothyroidism, remote history of amnesia and fugue state, lung nodule that has been worked up with benign findings, who comes in for chief complaint of left lower extremity weakness with CTA suspicious for possible subacute infarction. This time the presentation is concerning for ischemic event, but cannot rule out neoplasm or unusual vascular malformation. As such patient will be admitted to telemetry floor for further management. Plan: 1. Possible CVA: TSH was slightly elevated at 7. Her tele monitor showed some atrial bigemini and one brief run if normal sinus vs SVT. * MRI with and without gadolinium * ASA * Statin * Allow permissive hypertension * Monitor on telemetry--> consider cardio consult * Echo with bubble study * Neuro check * Repeat EKG * Neuro consult Hypertension: * Continue to monitor * Consider restarting meds later today Hypothyroidism: * Continue home medication Depression: * Will hold her paroxetine. Dementia: * Hold Aricept fc chem ppx hh diet Problem List: 1. Stroke (cerebrum) Pain Ratin Pain Location: none Pain Goal: Remain pain free Pain Plan: none Tomorrow's Labs & Rationales: cbc bep
[2017-08-19 06:16] VITALS: BP 142/82
[2017-08-19 08:47] LABS: ABSOLUTE BASOPHIL COUNT 0 /CUMM (0.0-0.2); ABSOLUTE EOSINOPHIL COUNT 0.2 /CUMM (0.0-0.7); ABSOLUTE GRANULOCYTE CT 2.9 /CUMM (1.4-6.5); ABSOLUTE LYMPH COUNT 1.9 /CUMM (1.2-3.4); ABSOLUTE MONOCYTE COUNT 0.7 /CUMM (0.10-0.60); BASOPHIL % 0.7 % (0.0-2.0); EOSINOPHIL % 3.6 % (0-5); GRANULOCYTE % 50.5 % (42.2-75.2); HEMATOCRIT 39.5 % (37-47); MEAN CORPUSCULAR HGB 31.2 PG (27.0-31.0); MEAN CORPUSCULAR HGB CONC 33.7 G/DL (33.0-37.0); MEAN CORPUSCULAR VOLUME 92.4 FL (81.0-99.0); MEAN PLATELET VOLUME 8.2 FL (7.4-10.4); PLATELET COUNT 271 /CUMM (130-400); RBC DISTRIBUTION WIDTH 15.2 % (11.5-14.5); RED BLOOD CELL CT 4.27 /CUMM (4.20-5.40); WHITE BLOOD CELL COUNT 5.8 /CUMM (4.8-10.8)
--- NOTE | 2017-08-19 13:26 | MRI REPORT ---
EXAMINATION: MR BRAIN WITHOUT CONTRAST CLINICAL INFORMATION: Right-sided hemiparesis and slurring of speech. Clinical indication for recent CTA of the head and neck was left weakness, ataxic gait and dizziness. COMPARISON: CTA of the head and neck 08/18/2017. TECHNIQUE: MRI of the brain without contrast was obtained using routine sequences. FINDINGS: There are areas of restricted diffusion in the right caudate nucleus and left johnson radiata. These correspond to areas of abnormal enhancement noted on the recent CTA. These areas have increased T2 and FLAIR signal and are consistent with areas of acute infarction. They have intrinsic increased T1 signal, which may be result of the staining from intravenous contrast for the prior CT scan. No evidence of hemorrhage is seen in this region or elsewhere. The ventricles and sulci are normal in size. There are scattered there is of T2 and FLAIR hyperintensity in the periventricular and subcortical white matter, as well as the bijan consistent with chronic microvascular ischemic changes. No intracranial mass, intra-axial blood products, midline shift, or extra-axial collection is visualized. Normal arterial and venous vascular flow voids are present. The mastoid air cells are well-aerated. There is mucoperiosteal thickening in the right ethmoid air cells on the current study. IMPRESSION: 1. There is restricted diffusion in areas in the right basal ganglia, consistent with areas of acute infarction. These correspond to the areas of enhancement on the prior CT scan. The areas demonstrate intrinsically increased T1 signal, likely due to staining from the contrast given for the previous CTA of the head and neck. There is no evidence of hemorrhage. 2. There are chronic microvascular ischemic changes. No masses are demonstrated.
[2017-08-19 14:03] VITALS: BP 130/78
--- NOTE | 2017-08-19 17:06 | Cons- Neurology ---
General Information and HPI Consulting Request Date of Consult: 08/19/17 Requested By: John DEMPSEY,Abiola History of Present Illness: 77-year-old female who 2 days ago noted that she started falling She went to bed and awaken the next day and continue to have falls She did not notice to was any significant weakness at that time Patient was able to get up from the floor when she fell There was no headache or loss of consciousness Patient was able to drive herself to her physician's office; she was examined and then ambulance was called to take her to Hospital Today it was noted that she had weakness in the left lower extremity Following day it was noted also that there was weakness in the left upper extremity Patient had no similar symptoms before There was no instance of head trauma Allergies/Medications Allergies: Coded Allergies: glycerin (UNKNOWN 08/18/17) venom-honey bee (UNKNOWN 08/18/17) Home Med List: Amlodipine Besylate 10 MG TABLET 1 TAB PO DAILY HEART (Reported) Atorvastatin Calcium (Lipitor) 10 MG TABLET 1 TAB PO DAILY CHOLESTEROL ( Reported) Calcium (Elemental-Fr Calcarb) (Calcium) 600 MG CALCIUM (1,500 MG) TABLET 1 TAB PO DAILY SUPPLEMENT (Reported) Cyanocobalamin (Vitamin B-12) 1,000 MCG TABLET 1 TAB PO DAILY VITAMIN SUPPORT (Reported) Donepezil HCl (Aricept) 5 MG TABLET 1 TAB PO QPM DEMENTIA (Reported) Epinephrine (Epipen) 0.3 MG/0.3 ML AUTO.INJCT 1 INJ IM DAILY PRN BEE STING ( Reported) Levothyroxine Sodium 112 MCG TABLET 1 TAB PO DAILY AC THYROID (Reported) Losartan Potassium 100 MG TABLET 1 TAB PO DAILY HEART (Reported) Paroxetine HCl (Paxil) 20 MG TABLET 2 TAB PO DAILY MENTAL HEALTH (Reported) Current Medications: Current Medications Sig/Patricio Start time Last Medication Dose Route Stop Time Status Admin Acetaminophen 650 MG Q6P PRN 08/18 191 AC PO Amlodipine Besylate 10 MG ONCE ONE 08/18 1745 DC 08/18 PO 08/18 1746 1909 Aspirin 81 MG DAILY 08/19 0900 AC 08/19 PO 1039 Aspirin 325 MG ONCE ONE 08/18 1930 DC 08/18 PO 08/18 193 2223 Atorvastatin Calcium 40 MG 1700 08/19 1700 DC PO Atorvastatin Calcium 80 MG 1700 08/19 1700 AC PO Atorvastatin Calcium 80 MG 1700 08/18 1930 DC 08/18 PO 2223 Enoxaparin Sodium 40 MG DAILY 08/19 0900 AC 08/19 SC 1040 Ibuprofen 600 MG Q6P PRN 08/18 1914 AC PO Levothyroxine Sodium 0.112 MG DAILY AC 08/19 0700 AC 08/19 PO 0535 Oxycodone/ 2 TAB Q6P PRN 08/18 1914 AC Acetaminophen PO Review of Systems Review of Systems: No headache, diplopia, vertigo, difficulty with swallowing Daughter noted mild slurred speech No head trauma, shortness of breath Patient has chronic incontinence No significant swelling lower extremities Usually walks unassisted No fevers or rashes Occasional intermittent chest pain Other systems reviewed and negative Past History Travel History Traveled to [place] past 21 day No Medical History Blood Transfusion Hx: No Neurological: dementia, TRANSIENT AMNESIA Cardiovascular: hypertension, hyperlipidemia Gastrointestinal: chronic diarrhea Renal: urinary incontinence Endocrine: hypothyroidism Surgical History Surgical History: 1 Family History Relations & Conditions If Any: Relation not specified for: *No pertinent family history Psychosocial History Where Do You Live? Home Who Do You Live With? self Services at Home: None Primary Language: Tajik Smoking Status: Former Smoker (20 year hx) ETOH Use: occasional use Illicit Drug Use: denies illicit drug use Functional Ability ADLs Independent: dressing, eating, toileting, bathing. Ambulation: independent IADLs Independent: shopping, housework, finances, food prep, telephone, transportation , medication admin. Exam & Diagnostic Data Vital Signs and I&O Vital Signs Date Time Temp Pulse Resp B/P B/P Pulse O2 O2 Flow FiO2 Mean Ox Delivery Rate 08/19 1403 98.0 87 20 130/78 92 Room Air 08/19 0616 98.1 81 20 142/82 96 Room Air 08/18 2211 97.7 77 20 148/114 92 08/18 2028 98.2 77 24 158/120 92 08/18 1958 98.3 80 18 158/70 93 Room Air 08/18 1909 152/82 08/18 1821 98.8 80 18 152/82 94 Room Air Intake & Output 08/19 1600 08/19 0800 08/19 0000 Intake Total 600 Output Total 400 Balance 200 Intake, Oral 600 Number 0 Bowel Movements Output, Urine 400 Patient 135 lb Weight Weight Bed scale Measurement Method Physical Exam: Alert Recall poor: 0 over 3 in 5 minutes time Oriented to time and place Minimal dysarthria Heart sounds normal no carotid bruits distal pulses intact Extraocular movements full, pupils equal reactive, fundi benign, visual santos intact, no facial weakness or facial sensory loss, palate tongue and shoulders intact, hearing grossly intact Motor examination shows normal tone, minimal drift left upper extremity, intrinsic hand muscle weakness, fine motor movement difficulty left hand Left lower extremity normal tone; 4/5 hip flexion weakness No sensory loss to light touch or position Deep tendon reflexes 1+ bilateral Coordinative functions grossly intact Attempt at gait not made due to patient's recurrent falls Last 48 Hours of Lab Results: Laboratory Tests 08/19 08/19 0925 0658 Chemistry Sodium (137 - 145 mmol/L) 143 Potassium (3.5 - 5.1 mmol/L) 4.1 Chloride (98 - 107 mmol/L) 107 Carbon Dioxide (22 - 30 mmol/L) 27 Anion Gap (5 - 16) 8 BUN (7 - 17 mg/dL) 19 H Creatinine (0.5 - 1.0 mg/dL) 0.7 Estimated GFR (>60 ml/min) > 60 BUN/Creatinine Ratio (7 - 25 %) 27.1 H Triglycerides (<150 mg/dL) 81 Cholesterol (<200 MG/DL) 209 H LDL Cholesterol, Calc (65 - 129 mg/dL) 117 HDL Cholesterol (40 - 60 mg/dL) 76 H Cholesterol/HDL Ratio (0.00 - 4.23 %) 3 Hematology CBC w Diff NO MAN DIFF REQ WBC (4.8 - 10.8 /CUMM) 5.8 RBC (4.20 - 5.40 /CUMM) 4.27 Hgb (12.0 - 16.0 G/DL) 13.3 Hct (37 - 47 %) 39.5 MCV (81.0 - 99.0 FL) 92.4 MCH (27.0 - 31.0 PG) 31.2 H MCHC (33.0 - 37.0 G/DL) 33.7 RDW (11.5 - 14.5 %) 15.2 H Plt Count (130 - 400 /CUMM) 271 MPV (7.4 - 10.4 FL) 8.2 Gran % (42.2 - 75.2 %) 50.5 Lymphocytes % (20.5 - 51.1 %) 33.3 Monocytes % (1.7 - 9.3 %) 11.9 H Eosinophils % (0 - 5 %) 3.6 Basophils % (0.0 - 2.0 %) 0.7 Absolute Granulocytes (1.4 - 6.5 /CUMM) 2.9 Absolute Lymphocytes (1.2 - 3.4 /CUMM) 1.9 Absolute Monocytes (0.10 - 0.60 /CUMM) 0.7 H Absolute Eosinophils (0.0 - 0.7 /CUMM) 0.2 Absolute Basophils (0.0 - 0.2 /CUMM) 0 Urines Urine Color (YEL,AMB,STR) YEL Urine Clarity (CLEAR) CLEAR Urine pH (5.0 - 8.0) 6.5 Ur Specific Schroeder (1.001 - 1.035) 1.015 Urine Protein (NEG,<30 MG/DL) NEG Urine Ketones (NEG) NEG Urine Nitrite (NEG) NEG Urine Bilirubin (NEG) NEG Urine Urobilinogen (0.1 - 1.0 EU/dl) 0.2 Ur Leukocyte Esterase (NEG) NEG Ur Microscopic EXAM NOT REQUIRED Urine Hemoglobin (NEG) NEG Urine Glucose (N MG/DL) NEG 08/18 1445 Chemistry Sodium (137 - 145 mmol/L) 143 Potassium (3.5 - 5.1 mmol/L) 3.9 Chloride (98 - 107 mmol/L) 106 Carbon Dioxide (22 - 30 mmol/L) 28 Anion Gap (5 - 16) 9 BUN (7 - 17 mg/dL) 26 H Creatinine (0.5 - 1.0 mg/dL) 0.7 Estimated GFR (>60 ml/min) > 60 BUN/Creatinine Ratio (7 - 25 %) 37.1 H Glucose (65 - 99 mg/dL) 93 Calcium (8.4 - 10.2 mg/dL) 9.3 Total Bilirubin (0.2 - 1.3 mg/dL) 0.5 AST (14 - 36 U/L) 29 ALT (9 - 52 U/L) 31 Alkaline Phosphatase (<127 U/L) 46 Troponin I (< 0.11 ng/ml) < 0.01 Total Protein (6.3 - 8.2 g/dL) 6.7 Albumin (3.5 - 5.0 g/dL) 4.2 Globulin (1.9 - 4.2 gm/dL) 2.5 Albumin/Globulin Ratio (1.1 - 2.2 %) 1.7 Vitamin B12 (239 - 931 pg/mL) 805 Folate (2.76 - 20.0 ng/mL) 15.3 Free T4 (0.78 - 2.44 ng/dL) 1.44 Total T3 (0.97 - 1.69 ng/mL) 1.09 TSH &T3 &Free T4 Intrp (0.270 - 4.20 uIU/mL) 7.850 H Hematology CBC w Diff NO MAN DIFF REQ WBC (4.8 - 10.8 /CUMM) 7.2 RBC (4.20 - 5.40 /CUMM) 4.32 Hgb (12.0 - 16.0 G/DL) 13.4 Hct (37 - 47 %) 39.8 MCV (81.0 - 99.0 FL) 92.0 MCH (27.0 - 31.0 PG) 31.0 MCHC (33.0 - 37.0 G/DL) 33.7 RDW (11.5 - 14.5 %) 14.6 H Plt Count (130 - 400 /CUMM) 278 MPV (7.4 - 10.4 FL) 7.6 Gran % (42.2 - 75.2 %) 59.0 Lymphocytes % (20.5 - 51.1 %) 27.8 Monocytes % (1.7 - 9.3 %) 11.5 H Eosinophils % (0 - 5 %) 1.3 Basophils % (0.0 - 2.0 %) 0.4 Absolute Granulocytes (1.4 - 6.5 /CUMM) 4.2 Absolute Lymphocytes (1.2 - 3.4 /CUMM) 2.0 Absolute Monocytes (0.10 - 0.60 /CUMM) 0.8 H Absolute Eosinophils (0.0 - 0.7 /CUMM) 0.1 Absolute Basophils (0.0 - 0.2 /CUMM) 0 Imaging/Other Studies: MRI scan brain IMPRESSION: 1. There is restricted diffusion in areas in the right basal ganglia, consistent with areas of acute infarction. These correspond to the areas of enhancement on the prior CT scan. The areas demonstrate intrinsically increased T1 signal, likely due to staining from the contrast given for the previous CTA of the head and neck. There is no evidence of hemorrhage. 2. There are chronic microvascular ischemic changes. No masses are demonstrated. CTA 3. There is no significant stenosis in the cervical and intracranial circulations, but there is mild multilevel atheromatous calcification and irregularity of the vessels as described above. 4. There is an area of ground glass opacification in the right upper lobe. This could be further assessed with chest x-ray and/or CT scan of the chest. Assessment/Plan Assessment: Cerebrovascular accident, right thalamic Likely small vessel disease Recommendations: High-dose statin, aspirin DVT prophylaxis Physical therapy and occupational therapy Mediterranean-type diet Daily exercise Attempt to have systolic in 130 range Attempt to have patient admitted to rehabilitation facility such [facility] or [facility]; patient is a good candidate for intensive therapy Consult Acknowledgment - Thank you for your consult request.
--- NOTE | 2017-08-19 19:51 | Cons- Cardiology ---
General Information and HPI Consulting Request Date of Consult: 08/19/17 Requested By: John DEMPSEY,Abiola Reason for Consult: Hypertension, CVA History of Present Illness: The patient is a 77-year-old female with history of hypertension, hyperlipidemia , and hypothyroidism who is admitted with CVA. 2 days ago, she began falling, and she noted that she was weak on the left side. She felt as though her left leg was dragging. After several falls, she drove herself to her primary care physician's office where she was evaluated and sent to the emergency department. No speech deficit. She continues to note mild weakness of the left upper and lower extremities. No head trauma. No chest pain. No palpitations. No syncope. No orthopnea. No nausea or vomiting. No diaphoresis. No prior history of stroke. No history of cardiac disease. She has been primarily in sinus rhythm on telemetry, however she is noted to have a brief episode of SVT. The SVT was regular, and did not appear consistent with atrial fibrillation. Allergies/Medications Allergies: Coded Allergies: glycerin (UNKNOWN 08/18/17) venom-honey bee (UNKNOWN 08/18/17) Home Med List: Amlodipine Besylate 10 MG TABLET 1 TAB PO DAILY HEART (Reported) Atorvastatin Calcium (Lipitor) 10 MG TABLET 1 TAB PO DAILY CHOLESTEROL ( Reported) Calcium (Elemental-Fr Calcarb) (Calcium) 600 MG CALCIUM (1,500 MG) TABLET 1 TAB PO DAILY SUPPLEMENT (Reported) Cyanocobalamin (Vitamin B-12) 1,000 MCG TABLET 1 TAB PO DAILY VITAMIN SUPPORT (Reported) Donepezil HCl (Aricept) 5 MG TABLET 1 TAB PO QPM DEMENTIA (Reported) Epinephrine (Epipen) 0.3 MG/0.3 ML AUTO.INJCT 1 INJ IM DAILY PRN BEE STING ( Reported) Levothyroxine Sodium 112 MCG TABLET 1 TAB PO DAILY AC THYROID (Reported) Losartan Potassium 100 MG TABLET 1 TAB PO DAILY HEART (Reported) Paroxetine HCl (Paxil) 20 MG TABLET 2 TAB PO DAILY MENTAL HEALTH (Reported) Current Medications: Current Medications Sig/Patricio Start time Last Medication Dose Route Stop Time Status Admin Acetaminophen 650 MG Q6P PRN 08/18 1915 AC PO Aspirin 81 MG DAILY 08/19 0900 AC 08/19 PO 1039 Atorvastatin Calcium 40 MG 1700 08/19 1700 DC PO Atorvastatin Calcium 80 MG 1700 08/19 1700 AC 08/19 PO 1700 Atorvastatin Calcium 80 MG 1700 08/18 1930 DC 08/18 PO 2223 Enoxaparin Sodium 40 MG DAILY 08/19 0900 AC 08/19 SC 1040 Ibuprofen 600 MG Q6P PRN 08/18 1914 AC PO Levothyroxine Sodium 0.112 MG DAILY AC 08/19 0700 AC 08/19 PO 0535 Oxycodone/ 2 TAB Q6P PRN 08/18 1914 AC Acetaminophen PO Review of Systems Review of Systems: No rash. No tremor. No melena. All other systems were reviewed, and were noted to be negative. Past History Travel History Traveled to [place] past 21 day No Medical History Blood Transfusion Hx: No Neurological: dementia, TRANSIENT AMNESIA Cardiovascular: hypertension, hyperlipidemia Gastrointestinal: chronic diarrhea Renal: urinary incontinence Endocrine: hypothyroidism Surgical History Surgical History: 1 Family History Relations & Conditions If Any: MOTHER Pulmonary embolism Psychosocial History Where Do You Live? Home Who Do You Live With? self Services at Home: None Primary Language: Amharic Smoking Status: Former Smoker (20 year hx) ETOH Use: occasional use Illicit Drug Use: denies illicit drug use Functional Ability ADLs Independent: dressing, eating, toileting, bathing. Ambulation: independent IADLs Independent: shopping, housework, finances, food prep, telephone, transportation , medication admin. Exam & Diagnostic Data Vital Signs and I&O Vital Signs Date Time Temp Pulse Resp B/P B/P Pulse O2 O2 Flow FiO2 Mean Ox Delivery Rate 08/19 1403 98.0 87 20 130/78 92 Room Air 08/19 0616 98.1 81 20 142/82 96 Room Air 08/18 2210 97.7 77 20 148/114 92 08/18 2028 98.2 77 24 158/120 92 08/18 1957 98.3 80 18 158/70 93 Room Air Intake & Output 08/19 1600 08/19 0800 08/19 0000 08/18 1600 08/18 0808/18 0000 Intake Total 600 0 Output Total 400 0 Balance 200 0 Intake, Oral 600 0 Number 0 Bowel Movements Output, Urine 400 0 Patient 135 lb 125 lb Weight Weight Bed scale Reported by Patient Measurement Method Physical Exam: Gen: The patient is in no acute distress HEENT: Normal nose, ears, and oropharynx. Pupils equal bilaterally. Conjunctiva normal. Neck: Supple with no JVD, no masses, and no thyromegaly Lungs: Clear to auscultation with normal respiratory effort Heart: RRR, S1, S2, no murmurs. No peripheral edema, 2+ pulses in the lower extremities bilaterally Abdomen: Soft, nontender, no masses. No hepatomegaly. No splenomegaly Extremities: No clubbing or cyanosis. Mild weakness of the left upper and lower extremity Skin: Normal skin turgor with no skin ulcers or lesions noted. Neuro: Cranial nerves intact. Sensation intact Psych: Alert and oriented x 3 with appropriate affect Labs/Gordon Results: Laboratory Tests 08/19 08/19 0925 0658 Chemistry Sodium (137 - 145 mmol/L) 143 Potassium (3.5 - 5.1 mmol/L) 4.1 Chloride (98 - 107 mmol/L) 107 Carbon Dioxide (22 - 30 mmol/L) 27 Anion Gap (5 - 16) 8 BUN (7 - 17 mg/dL) 19 H Creatinine (0.5 - 1.0 mg/dL) 0.7 Estimated GFR (>60 ml/min) > 60 BUN/Creatinine Ratio (7 - 25 %) 27.1 H Triglycerides (<150 mg/dL) 81 Cholesterol (<200 MG/DL) 209 H LDL Cholesterol, Calc (65 - 129 mg/dL) 117 HDL Cholesterol (40 - 60 mg/dL) 76 H Cholesterol/HDL Ratio (0.00 - 4.23 %) 3 Hematology CBC w Diff NO MAN DIFF REQ WBC (4.8 - 10.8 /CUMM) 5.8 RBC (4.20 - 5.40 /CUMM) 4.27 Hgb (12.0 - 16.0 G/DL) 13.3 Hct (37 - 47 %) 39.5 MCV (81.0 - 99.0 FL) 92.4 MCH (27.0 - 31.0 PG) 31.2 H MCHC (33.0 - 37.0 G/DL) 33.7 RDW (11.5 - 14.5 %) 15.2 H Plt Count (130 - 400 /CUMM) 271 MPV (7.4 - 10.4 FL) 8.2 Gran % (42.2 - 75.2 %) 50.5 Lymphocytes % (20.5 - 51.1 %) 33.3 Monocytes % (1.7 - 9.3 %) 11.9 H Eosinophils % (0 - 5 %) 3.6 Basophils % (0.0 - 2.0 %) 0.7 Absolute Granulocytes (1.4 - 6.5 /CUMM) 2.9 Absolute Lymphocytes (1.2 - 3.4 /CUMM) 1.9 Absolute Monocytes (0.10 - 0.60 /CUMM) 0.7 H Absolute Eosinophils (0.0 - 0.7 /CUMM) 0.2 Absolute Basophils (0.0 - 0.2 /CUMM) 0 Urines Urine Color (YEL,AMB,STR) YEL Urine Clarity (CLEAR) CLEAR Urine pH (5.0 - 8.0) 6.5 Ur Specific [place] (1.001 - 1.035) 1.015 Urine Protein (NEG,<30 MG/DL) NEG Urine Ketones (NEG) NEG Urine Nitrite (NEG) NEG Urine Bilirubin (NEG) NEG Urine Urobilinogen (0.1 - 1.0 EU/dl) 0.2 Ur Leukocyte Esterase (NEG) NEG Ur Microscopic EXAM NOT REQUIRED Urine Hemoglobin (NEG) NEG Urine Glucose (N MG/DL) NEG 08/18 1445 Chemistry Sodium (137 - 145 mmol/L) 143 Potassium (3.5 - 5.1 mmol/L) 3.9 Chloride (98 - 107 mmol/L) 106 Carbon Dioxide (22 - 30 mmol/L) 28 Anion Gap (5 - 16) 9 BUN (7 - 17 mg/dL) 26 H Creatinine (0.5 - 1.0 mg/dL) 0.7 Estimated GFR (>60 ml/min) > 60 BUN/Creatinine Ratio (7 - 25 %) 37.1 H Glucose (65 - 99 mg/dL) 93 Calcium (8.4 - 10.2 mg/dL) 9.3 Total Bilirubin (0.2 - 1.3 mg/dL) 0.5 AST (14 - 36 U/L) 29 ALT (9 - 52 U/L) 31 Alkaline Phosphatase (<127 U/L) 46 Troponin I (< 0.11 ng/ml) < 0.01 Total Protein (6.3 - 8.2 g/dL) 6.7 Albumin (3.5 - 5.0 g/dL) 4.2 Globulin (1.9 - 4.2 gm/dL) 2.5 Albumin/Globulin Ratio (1.1 - 2.2 %) 1.7 Vitamin B12 (239 - 931 pg/mL) 805 Folate (2.76 - 20.0 ng/mL) 15.3 Free T4 (0.78 - 2.44 ng/dL) 1.44 Total T3 (0.97 - 1.69 ng/mL) 1.09 TSH &T3 &Free T4 Intrp (0.270 - 4.20 uIU/mL) 7.850 H Hematology CBC w Diff NO MAN DIFF REQ WBC (4.8 - 10.8 /CUMM) 7.2 RBC (4.20 - 5.40 /CUMM) 4.32 Hgb (12.0 - 16.0 G/DL) 13.4 Hct (37 - 47 %) 39.8 MCV (81.0 - 99.0 FL) 92.0 MCH (27.0 - 31.0 PG) 31.0 MCHC (33.0 - 37.0 G/DL) 33.7 RDW (11.5 - 14.5 %) 14.6 H Plt Count (130 - 400 /CUMM) 278 MPV (7.4 - 10.4 FL) 7.6 Gran % (42.2 - 75.2 %) 59.0 Lymphocytes % (20.5 - 51.1 %) 27.8 Monocytes % (1.7 - 9.3 %) 11.5 H Eosinophils % (0 - 5 %) 1.3 Basophils % (0.0 - 2.0 %) 0.4 Absolute Granulocytes (1.4 - 6.5 /CUMM) 4.2 Absolute Lymphocytes (1.2 - 3.4 /CUMM) 2.0 Absolute Monocytes (0.10 - 0.60 /CUMM) 0.8 H Absolute Eosinophils (0.0 - 0.7 /CUMM) 0.1 Absolute Basophils (0.0 - 0.2 /CUMM) 0 Diagnostic Data EKG Results EKG tracing is independently reviewed, and reveals normal sinus rhythm at 72, with frequent premature atrial contractions, often in a bigeminy pattern. Left axis deviation. Nonspecific T-wave focality Other Results CT angiogram of the head and neck: 1. There is intense enhancement in the right caudate nucleus and anterior right putamen, which may be consistent with enhancement in areas of subacute infarction. An atypical venous malformation cannot be excluded. Recommend MRI scan of the brain without and with contrast for further assessment. 2. No other territorial infarcts, masses or abnormal enhancement are demonstrated. There is no evidence of hemorrhage. 3. There is no significant stenosis in the cervical and intracranial circulations, but there is mild multilevel atheromatous calcification and irregularity of the vessels as described above. 4. There is an area of ground glass opacification in the right upper lobe. This could be further assessed with chest x-ray and/or CT scan of the chest. 5. This critical result was discussed with Donny Damon by telephone on 08/18/2017 at 4:00 PM and it was ascertained that the content and urgency of the report was understood at the time of direct communication. MRI head: 1. There is restricted diffusion in areas in the right basal ganglia, consistent with areas of acute infarction. These correspond to the areas of enhancement on the prior CT scan. The areas demonstrate intrinsically increased T1 signal, likely due to staining from the contrast given for the previous CTA of the head and neck. There is no evidence of hemorrhage. 2. There are chronic microvascular ischemic changes. No masses are demonstrated. Assessment/Plan Assessment/Plan The patient is a 77-year-old female with history of hypertension, hypothyroidism , and hyperlipidemia presenting with left upper and lower extremity weakness, found to have evidence of right thalamic CVA. No significant carotid stenosis is seen on CT angiogram. She is noted to have frequent premature atrial contractions. Telemetry monitoring reveals a brief episode of SVT. No atrial fibrillation has been seen so far on telemetry. Recommendations: * Continue telemetry monitoring. If evidence of atrial fibrillation is seen, then anticoagulation will be indicated * Continue aspirin * Continue statin therapy * Echocardiogram to evaluate for cardiac source of embolism * If no etiology for the CVA is found as an inpatient, will plan on doing long- term monitoring as an outpatient for paroxysmal atrial fibrillation Consult Acknowledgment - Thank you for your consult request.
[2017-08-19 22:06] VITALS: BP 126/78
[2017-08-20 06:56] VITALS: BP 126/84
[2017-08-20 08:24] LABS: ABSOLUTE BASOPHIL COUNT 0 /CUMM (0.0-0.2); ABSOLUTE EOSINOPHIL COUNT 0.2 /CUMM (0.0-0.7); ABSOLUTE LYMPH COUNT 1.9 /CUMM (1.2-3.4); ABSOLUTE MONOCYTE COUNT 0.6 /CUMM (0.10-0.60); BASOPHIL % 0.8 % (0.0-2.0); EOSINOPHIL % 4.8 % (0-5); GRANULOCYTE % 41.9 % (42.2-75.2); HEMATOCRIT 40.1 % (37-47); MEAN CORPUSCULAR HGB 30.5 PG (27.0-31.0); MEAN CORPUSCULAR HGB CONC 32.9 G/DL (33.0-37.0); MEAN CORPUSCULAR VOLUME 92.8 FL (81.0-99.0); MEAN PLATELET VOLUME 8.1 FL (7.4-10.4); PLATELET COUNT 277 /CUMM (130-400); RED BLOOD CELL CT 4.32 /CUMM (4.20-5.40); WHITE BLOOD CELL COUNT 4.8 /CUMM (4.8-10.8)
--- NOTE | 2017-08-20 09:06 | PN- Housestaff ---
See Addendum Subjective Follow-up For: CVA Tele-Events Since Last Visit: sinus rhythm, no overnight events Subjective: persistent dysarthria but motor deficits improved, ambulated with PT Review of Systems Constitutional: Reports: see HPI. Objective Last 24 Hrs of Vital Signs/I&O Vital Signs Date Time Temp Pulse Resp B/P B/P Pulse O2 O2 Flow FiO2 Mean Ox Delivery Rate 08/20 0656 97.9 69 18 126/84 96 Room Air 08/19 2206 98.5 64 16 126/78 93 Room Air 08/19 1403 98.0 87 20 130/78 92 Room Air Intake & Output 08/20 1600 08/20 0800 08/20 0000 Intake Total 400 240 200 Output Total 300 350 600 Balance 100 -110 -400 Intake, Oral 400 240 200 Output, Urine 300 350 600 Patient 61.887 kg Weight Weight Bed scale Measurement Method Physical Exam General Appearance: Alert, Oriented X3, Cooperative, No Acute Distress, mild dysarthria Cardiovascular: Regular Rate, Normal S1, Normal S2, No Murmurs Lungs: Clear to Auscultation, Normal Air Movement Abdomen: Normal Bowel Sounds, Soft, No Tenderness, No Masses Extremities: No Clubbing, No Cyanosis, No Edema, Normal Pulses, left UE/LE 5/5 strength improved weaker than right Current Medications: Current Medications Sig/Patricio Start time Last Medication Dose Route Stop Time Status Admin Acetaminophen 650 MG Q6P PRN 08/18 1914 AC PO Aspirin 81 MG DAILY 08/19 0900 AC 08/20 PO 1015 Atorvastatin Calcium 40 MG 1700 08/19 1700 DC PO Atorvastatin Calcium 80 MG 1700 08/19 1700 AC 08/19 PO 1700 Enoxaparin Sodium 40 MG DAILY 08/19 0900 AC 08/20 SC 1015 Ibuprofen 600 MG Q6P PRN 08/18 1914 AC PO Levothyroxine Sodium 0.112 MG DAILY AC 08/19 0700 AC 08/20 PO 0543 Oxycodone/ 2 TAB Q6P PRN 08/18 1914 AC Acetaminophen PO Last 24 Hrs of Lab/Gordon Results Last 24 Hrs of Labs/Mics: Laboratory Tests 08/20/17 0635: Anion Gap 8, Estimated GFR > 60, BUN/Creatinine Ratio 32.9 H, CBC w Diff NO MAN DIFF REQ, RBC 4.32, MCV 92.8, MCH 30.5, MCHC 32.9 L, RDW 15.0 H, MPV 8.1, Gran % 41.9 L, Lymphocytes % 39.3, Monocytes % 13.2 H, Eosinophils % 4.8, Basophils % 0.8, Absolute Granulocytes 2.0, Absolute Lymphocytes 1.9, Absolute Monocytes 0.6, Absolute Eosinophils 0.2, Absolute Basophils 0 Assessment/Plan Assessment: 77-year-old female with PMH of HTN, HLD, hypothyroidism, presented with left lower extremity weakness and right basal ganglia CVA CVA: TSH was slightly elevated at 7. Bigeminy and SVT on telemetry, sinus overnight Continue aspirin and high intensity statin therapy MRI with and without gadolinium Echo with bubble study for paroxysmal emboli eval Neuro consult PT/OT, and speech therapy Would benefit from acute rehab Hypertension: Antihypertensives on hold Plan to restart losartan prior to discharge Hypothyroidism: Continue synthroid Depression: Restart paroxetine. Dementia: Restart Aricept Heart healthy diet DVT ppx-lovenox sc Full code Problem List: 1. Stroke (cerebrum) 2. Hypothyroidism 3. Hyperlipidemia 4. Depression Pain Ratin Pain Location: n/a Pain Goal: Pain 4 or less Pain Plan: prn Tomorrow's Labs & Rationales: none
[2017-08-20 14:32] VITALS: BP 124/70
--- NOTE | 2017-08-20 14:33 | PN- Cardiology ---
Subjective Subjective: The patient is feeling well. Left upper and lower extremity weakness is improving. The patient reports that she was able to ambulate. No palpitations. No chest pain Objective Vital Signs and I&Os Vital Signs Date Time Temp Pulse Resp B/P B/P Pulse O2 O2 Flow FiO2 Mean Ox Delivery Rate 08/20 0656 97.9 69 18 126/84 96 Room Air 08/19 2206 98.5 64 16 126/78 93 Room Air Intake & Output 08/20 1600 08/20 0800 08/20 0000 08/19 1600 08/19 0800 08/19 0000 Intake Total 400 240 200 600 Output Total 300 350 600 400 Balance 100 -110 -400 200 Intake, Oral 400 240 200 600 Number 0 Bowel Movements Output, Urine 300 350 600 400 Patient 136 lb 135 lb Weight Weight Bed scale Bed scale Measurement Method Physical Exam: Gen: NAD HEENT: normal Lungs: clear to auscultation, normal resp. effort Heart: RRR, S1, S2, no murmurs Abdomen: Soft, nontender, no masses Extremities: No clubbing, cyanosis, or edema. Neuro: Alert and oriented x 3, cranial nerves intact. Left upper and lower extremity weakness Current Medications: Current Medications Sig/Patricio Start time Last Medication Dose Route Stop Time Status Admin Acetaminophen 650 MG Q6P PRN 08/18 1914 AC PO Aspirin 81 MG DAILY 08/19 09 AC 08/20 PO 1015 Atorvastatin Calcium 80 MG 1700 08/19 1700 AC 08/19 PO 1700 Donepezil HCl 5 MG QPM 08/20 2100 AC PO Enoxaparin Sodium 40 MG DAILY 08/19 09 AC 08/20 SC 1015 Ibuprofen 600 MG Q6P PRN 08/18 1914 AC PO Levothyroxine Sodium 0.112 MG DAILY AC 08/19 0700 AC 08/20 PO 0543 Oxycodone/ 2 TAB Q6P PRN 08/18 1914 AC Acetaminophen PO Paroxetine HCl 40 MG DAILY 08/20 1329 AC PO Results Last 48 Hrs of Labs/Mics: Laboratory Tests 08/20/17 0635: Anion Gap 8, Estimated GFR > 60, BUN/Creatinine Ratio 32.9 H, CBC w Diff NO MAN DIFF REQ, RBC 4.32, MCV 92.8, MCH 30.5, MCHC 32.9 L, RDW 15.0 H, MPV 8.1, Gran % 41.9 L, Lymphocytes % 39.3, Monocytes % 13.2 H, Eosinophils % 4.8, Basophils % 0.8, Absolute Granulocytes 2.0, Absolute Lymphocytes 1.9, Absolute Monocytes 0.6, Absolute Eosinophils 0.2, Absolute Basophils 0 08/19/17 0925: Urine Color YEL, Urine Clarity CLEAR, Urine pH 6.5, Ur Specific [place] 1.015, Urine Protein NEG, Urine Ketones NEG, Urine Nitrite NEG, Urine Bilirubin NEG, Urine Urobilinogen 0.2, Ur Leukocyte Esterase NEG, Ur Microscopic EXAM NOT REQUIRED, Urine Hemoglobin NEG, Urine Glucose NEG 08/19/17 0658: Anion Gap 8, Estimated GFR > 60, BUN/Creatinine Ratio 27.1 H, Triglycerides 81, Cholesterol 209 H, LDL Cholesterol, Calc 117, HDL Cholesterol 76 H, Cholesterol/HDL Ratio 3, CBC w Diff NO MAN DIFF REQ, RBC 4.27, MCV 92.4, MCH 31.2 H, MCHC 33.7, RDW 15.2 H, MPV 8.2, Gran % 50.5, Lymphocytes % 33.3, Monocytes % 11.9 H, Eosinophils % 3.6, Basophils % 0.7, Absolute Granulocytes 2.9, Absolute Lymphocytes 1.9, Absolute Monocytes 0.7 H, Absolute Eosinophils 0.2, Absolute Basophils 0 08/18/17 1445: Anion Gap 9, Estimated GFR > 60, BUN/Creatinine Ratio 37.1 H, Glucose 93, Calcium 9.3, Total Bilirubin 0.5, AST 29, ALT 31, Alkaline Phosphatase 46, Troponin I < 0.01, Total Protein 6.7, Albumin 4.2, Globulin 2.5, Albumin/ Globulin Ratio 1.7, Vitamin B12 805, Folate 15.3, Free T4 1.44, Total T3 1.09, TSH &T3 &Free T4 Intrp 7.850 H, CBC w Diff NO MAN DIFF REQ, RBC 4.32, MCV 92.0, MCH 31.0, MCHC 33.7, RDW 14.6 H, MPV 7.6, Gran % 59.0, Lymphocytes % 27.8, Monocytes % 11.5 H, Eosinophils % 1.3, Basophils % 0.4, Absolute Granulocytes 4.2, Absolute Lymphocytes 2.0, Absolute Monocytes 0.8 H, Absolute Eosinophils 0.1, Absolute Basophils 0 Assessment/Plan Assessment/Plan Assessment: 1. Hypertension 2. Hypothyroidism 3. Hyperlipidemia 4. Acute right thalamic CVA 5. 1 episode of SVT noted on telemetry. No atrial fibrillation seen Plan: * Echocardiogram pending * Continue aspirin and statin * Monitor for atrial fibrillation on telemetry Continue telemetry? Yes
--- NOTE | 2017-08-20 18:01 | PN- Neurology ---
Subjective Subjective: Left arm weakness Review of Systems: No headache No dizziness Difficulty using left hand when eating Objective Vital Signs and I&Os Vital Signs Date Time Temp Pulse Resp B/P B/P Pulse O2 O2 Flow FiO2 Mean Ox Delivery Rate 08/20 1432 98.1 68 20 124/70 98 Room Air 08/20 0656 97.9 69 18 126/84 96 Room Air 08/19 2206 98.5 64 16 126/78 93 Room Air Intake & Output 08/20 1600 08/20 0800 08/20 0000 08/19 1600 08/19 0800 08/19 0000 Intake Total 700 240 200 600 Output Total 300 350 600 400 Balance 400 -110 -400 200 Intake, Oral 700 240 200 600 Number 0 Bowel Movements Output, Urine 300 350 600 400 Patient 136 lb 135 lb Weight Weight Bed scale Bed scale Measurement Method No dysarthria No facial weakness Left hand intrinsic muscle weakness Left leg hip flexion weakness Patient states that she started walking with assistance with physical therapy Current Medications: Current Medications Sig/Patricio Start time Last Medication Dose Route Stop Time Status Admin Acetaminophen 650 MG Q6P PRN 08/18 1914 AC PO Aspirin 81 MG DAILY 08/19 09 AC 08/20 PO 1015 Atorvastatin Calcium 80 MG 1700 08/19 1700 AC 08/20 PO 1705 Donepezil HCl 5 MG QPM 08/20 2100 AC PO Enoxaparin Sodium 40 MG DAILY 08/19 09 AC 08/20 SC 1015 Ibuprofen 600 MG Q6P PRN 08/18 1914 AC PO Levothyroxine Sodium 0.112 MG DAILY AC 08/19 0700 AC 08/20 PO 0543 Oxycodone/ 2 TAB Q6P PRN 08/18 1914 AC Acetaminophen PO Paroxetine HCl 40 MG DAILY 08/20 1329 AC 08/20 PO 1529 Results Last 24 Hours of Lab Results: Laboratory Tests 08/20 0635 Chemistry Sodium (137 - 145 mmol/L) 141 Potassium (3.5 - 5.1 mmol/L) 4.2 Chloride (98 - 107 mmol/L) 106 Carbon Dioxide (22 - 30 mmol/L) 27 Anion Gap (5 - 16) 8 BUN (7 - 17 mg/dL) 23 H Creatinine (0.5 - 1.0 mg/dL) 0.7 Estimated GFR (>60 ml/min) > 60 BUN/Creatinine Ratio (7 - 25 %) 32.9 H Hematology CBC w Diff NO MAN DIFF REQ WBC (4.8 - 10.8 /CUMM) 4.8 RBC (4.20 - 5.40 /CUMM) 4.32 Hgb (12.0 - 16.0 G/DL) 13.2 Hct (37 - 47 %) 40.1 MCV (81.0 - 99.0 FL) 92.8 MCH (27.0 - 31.0 PG) 30.5 MCHC (33.0 - 37.0 G/DL) 32.9 L RDW (11.5 - 14.5 %) 15.0 H Plt Count (130 - 400 /CUMM) 277 MPV (7.4 - 10.4 FL) 8.1 Gran % (42.2 - 75.2 %) 41.9 L Lymphocytes % (20.5 - 51.1 %) 39.3 Monocytes % (1.7 - 9.3 %) 13.2 H Eosinophils % (0 - 5 %) 4.8 Basophils % (0.0 - 2.0 %) 0.8 Absolute Granulocytes (1.4 - 6.5 /CUMM) 2.0 Absolute Lymphocytes (1.2 - 3.4 /CUMM) 1.9 Absolute Monocytes (0.10 - 0.60 /CUMM) 0.6 Absolute Eosinophils (0.0 - 0.7 /CUMM) 0.2 Absolute Basophils (0.0 - 0.2 /CUMM) 0 Recent Imaging Studies: MRI IMPRESSION: 1. There is restricted diffusion in areas in the right basal ganglia, consistent with areas of acute infarction. These correspond to the areas of enhancement on the prior CT scan. The areas demonstrate intrinsically increased T1 signal, likely due to staining from the contrast given for the previous CTA of the head and neck. There is no evidence of hemorrhage. Assessment/Plan Assessment: Cerebrovascular accident, small vessel Plan: Rehabilitation facility, preferably [place] or [place]
[2017-08-20 22:14] VITALS: BP 118/62
[2017-08-21 07:04] VITALS: BP 118/84
--- NOTE | 2017-08-21 07:07 | PN- Housestaff ---
See Addendum Subjective Follow-up For: CVA Tele-Events Since Last Visit: Sinus rhythm HR [id number], with PACs, elevated heart rate from [id number] for brief. This a.m., averaging [id number] Subjective: Patient was seen and examined at bedside. She is resting comfortably. She had no acute events overnight. Her only complaint is frustration with continue to be in the hospital, however she does understand why she has to be here. She reports that overall her strength in her left lower extremity is improving. She reports intermittent shooting sensations of discomfort down her left leg, she does not describe this as painful but really uncomfortable and very brief. she currently has no other complaints and denies any headache, numbness, chest pain, shortness of breath, nausea, vomiting, fever, chills. Review of Systems Constitutional: Reports: see HPI. Objective Last 24 Hrs of Vital Signs/I&O Vital Signs Date Time Temp Pulse Resp B/P B/P Pulse O2 O2 Flow FiO2 Mean Ox Delivery Rate 08/21 0704 97.8 65 16 118/84 94 Room Air 08/20 2214 98.3 56 16 118/62 96 Room Air 08/20 1432 98.1 68 20 124/70 98 Room Air Intake & Output 08/21 0800 08/21 0000 08/20 1600 Intake Total 330 220 700 Output Total 250 250 300 Balance 80 -30 400 Intake, Oral 330 220 700 Output, Urine 250 250 300 Patient 139 lb Weight Weight Bed scale Measurement Method Physical Exam General Appearance: Alert, Oriented X3, Cooperative, No Acute Distress Skin Temp/Moisture Exam: Warm/Dry Cardiovascular: Regular Rate, Normal S1, Normal S2 Lungs: Clear to Auscultation, Normal Air Movement Abdomen: Normal Bowel Sounds, Soft, No Tenderness Neurological: Normal Speech, Normal Tone, Sensation Intact, mild L sided facial droop, improved from monday. LLE strength 4/5 other extremities 5/5 Current Medications: Current Medications Sig/Patricio Start time Last Medication Dose Route Stop Time Status Admin Acetaminophen 650 MG Q6P PRN 08/18 1915 AC PO Aspirin 81 MG DAILY 08/19 0900 AC 08/20 PO 1015 Atorvastatin Calcium 80 MG 1700 08/19 1700 AC 08/20 PO 170 Donepezil HCl 5 MG QPM 08/20 2100 AC 08/20 PO 2004 Enoxaparin Sodium 40 MG DAILY 08/19 0900 AC 08/20 SC 1015 Ibuprofen 600 MG Q6P PRN 08/18 1914 AC PO Levothyroxine Sodium 0.112 MG DAILY AC 08/19 0700 AC 08/21 PO 0542 Oxycodone/ 2 TAB Q6P PRN 08/18 1914 AC Acetaminophen PO Paroxetine HCl 40 MG DAILY 08/20 1329 AC 08/20 PO 1529 Assessment/Plan Assessment: Patient is a 77-year-old female with a PMH significant for HTN, HLD, hypothyroidism, depression who presented complaining of left lower extremity weakness and multiple falls. #Basal ganglia CVA MRI confirms ischemia within the right basal ganglia. -Continue aspirin, statin -Neurology recommendations appreciated -Patient will be discharged to acute rehab for physical therapy, bedsearch currently underway -Echocardiogram pending #Chronic medical problems -Continue current medication regimen, losartan on hold initially for permissive hypertension, however patient has been normotensive Diet: Heart healthy DVT prophylaxis: Lovenox, Alps CODE STATUS: Full code Problem List: 1. Stroke (cerebrum) Pain Ratin Pain Location: none Pain Goal: Remain pain free Pain Plan: pain pathway Tomorrow's Labs & Rationales: cbc, bep
--- NOTE | 2017-08-21 07:53 | Discharge Summary ---
Visit Information Visit Dates Admission Date: 08/18/17 Discharge Date: 08/22/17 Hospital Course Course Attending Physician: Froy Primary Care Physician: Espinoza Demarco MD Hospital Course: 77 year old woman with past medical history significant for HTN, HLD, ex-smoker presented for left leg weakness the day before admission. She fell 4 times prior to discharge. On examination her strength was found to be decreased to 4/5 on left lower extremity with gait abnormality. Vital signs on presentation: T 98.8, P 89, RR 16, BP 182/86, saturating 99% on room air Labs: CBC unremarkable, BUN 26, troponin <0.01 CT of head and neck shows intense enhancement in the right caudate nucleus and anterior right putamen which may be consistent with enhancement in areas of subacute infarction. Additionally, an atypical venous malformation cannot be excluded. She was admitted to the telemetery and the following issues were addressed: CVA: Noted to have a right thalamic cerebrovascular accident. MRI with and without gadolinium showed restricted diffusion in areas in the right basal ganglia, consistent with areas of acute infarction. Echo with bubble study was significant for moderate concentric left ventricular hypertrophy and a normal left ventricular ejection fraction of 60%. Neurology was consulted and she was started on high-dose statin and aspirin. TSH was slightly elevated at 7.0. PT/ OT therapy was started along with speech therapy. One episode of NSVT noted on telemetry, remaine in sinus rhythm throught out her hospitalization. Would benefit from acute rehab. Hypertension: Her antihypertensives (Losartan and amlodipine) were on held secondary to hypotension and upon discharge as well. Hypothyroidism: Continued on home dose of synthroid Depression: Continued on paroxetine. Dementia: Continued on upon discharge as well and was held Aricept. Of note there is an area of ground glass opacification in the right upper lobe which should be followed up as outpatient. Heart healthy diet DVT ppx-lovenox sc Full code Complications: None Allergies: Coded Allergies: glycerin (UNKNOWN 08/18/17) venom-honey bee (UNKNOWN 08/18/17) Significant Procedures: SERVICE DATE: 08/19/17- EXAM TYPE: MRI - MRI-HEAD W/O PHILLIP FINDINGS: There are areas of restricted diffusion in the right caudate nucleus and left johnson radiata. These correspond to areas of abnormal enhancement noted on the recent CTA. These areas have increased T2 and FLAIR signal and are consistent with areas of acute infarction. They have intrinsic increased T1 signal, which may be result of the staining from intravenous contrast for the prior CT scan. No evidence of hemorrhage is seen in this region or elsewhere. The ventricles and sulci are normal in size. There are scattered there is of T2 and FLAIR hyperintensity in the periventricular and subcortical white matter, as well as the bijan consistent with chronic microvascular ischemic changes. No intracranial mass, intra-axial blood products, midline shift, or extra-axial collection is visualized. Normal arterial and venous vascular flow voids are present. The mastoid air cells are well-aerated. There is mucoperiosteal thickening in the right ethmoid air cells on the current study. IMPRESSION: 1. There is restricted diffusion in areas in the right basal ganglia, consistent with areas of acute infarction. These correspond to the areas of enhancement on the prior CT scan. The areas demonstrate intrinsically increased T1 signal, likely due to staining from the contrast given for the previous CTA of the head and neck. There is no evidence of hemorrhage. 2. There are chronic microvascular ischemic changes. No masses are demonstrated. SERVICE DATE: 08/18/17 EXAM TYPE: CAT - CT HEAD ANGIOGRAM; CT NECK ANGIOGRAM FINDINGS: CT Head: There is no evidence of acute intracranial hemorrhage or territorial infarction. No abnormal mass-effect or midline shift is seen. Agrawal to white matter differentiation is well preserved. No extra-axial fluid collections are identified. The ventricles are normal in size. There are mild areas of low attenuation in the periventricular and subcortical white matter, consistent with chronic microvascular ischemic change. There are areas of low attenuation in the basal ganglia bilaterally, which may be consistent with lacunar infarcts. On the postcontrast images there is intense and uniform enhancement in the head of the right caudate nucleus, as well as in the anterior aspect of the right putamen. These do not have significant corresponding abnormal density on the noncontrast images. The findings may be consistent with enhancement in subacute areas of infarction or an atypical venous malformation. No other abnormal enhancement is noted elsewhere. There are no acute osseous findings. There is hyperostosis frontalis interna. The soft tissues are unremarkable. The mastoid air cells and visualized portions of the paranasal sinuses are well-aerated. CTA Neck: There is a four-vessel aortic arch, and the left vertebral artery arises directly off the aortic arch, a normal variant. There are atheromatous calcifications at the origin of the left subclavian artery as well as of the arch itself. The brachiocephalic and left common carotid arteries appear normal. There are also atheromatous calcifications at the origin of the right subclavian artery. The common carotid arteries bilaterally are widely patent. There are mild atheromatous calcifications at the carotid bifurcations bilaterally, but there is no significant stenosis. The cervical internal carotid arteries are slightly tortuous but are patent throughout the neck extending intracranially. As described above, the left vertebral artery arises directly off the aortic arch. The origin of the right vertebral artery has a minimal amount of atheromatous calcification. The right vertebral artery is dominant. The vertebral arteries are patent throughout their cervical course extending intradurally. Nonvascular: There is patchy ground glass opacification in the lateral right upper lobe. The remaining lung santos appear well-aerated. The thyroid gland appears normal. There is no cervical lymphadenopathy. The submandibular and parotid glands appear normal. There are degenerative changes of the bilateral temporomandibular joints. There are omuk-zc-aaispiao multilevel spondylitic changes in the cervical spine with narrowing of intervertebral disc height, degenerative anterolistheses of C4 on C5 and C5 on C6, as well as facet arthropathy. CTA Head: In the anterior circulation, the distal internal carotid arteries within the neck appear normal. The intracranial internal carotid arteries demonstrate atheromatous calcifications in the cavernous sinuses. The internal carotid artery bifurcations appear normal. There are areas of slight irregularity of the middle cerebral arteries, most prominent in the distal M1 segment of the left middle cerebral artery, and in the proximal M2 segment of the right middle cerebral artery. The anterior cerebral arteries appear normal bilaterally. The anterior communicating artery appears normal. No aneurysms or vascular malformations are demonstrated. In the posterior circulation, the right vertebral artery is dominant. There is calcification at the proximal basilar artery, and the basilar artery has slightly irregular caliber. There is slight irregularity of the proximal P2 segments of the posterior cerebral arteries bilaterally. There are no aneurysms or vascular malformations. The venous sinuses opacify normally. IMPRESSION: 1. There is intense enhancement in the right caudate nucleus and anterior right putamen, which may be consistent with enhancement in areas of subacute infarction. An atypical venous malformation cannot be excluded. Recommend MRI scan of the brain without and with contrast for further assessment. 2. No other territorial infarcts, masses or abnormal enhancement are demonstrated. There is no evidence of hemorrhage. 3. There is no significant stenosis in the cervical and intracranial circulations, but there is mild multilevel atheromatous calcification and irregularity of the vessels as described above. 4.There is an area of ground glass opacification in the right upper lobe This could be further assessed with chest x-ray and/or CT scan of the chest. Disposition Summary Disposition Principal Diagnosis: CVA Additional Diagnosis: 1. Hypertension 2. Hypothyroidism 3. Hyperlipidemia Discharge Disposition: SNF Discharge Instructions General Discharge Information Code Status: Full Code Patient's Diet: heart healthy Patient's Activity: as tolerated Follow-Up Instructions/Appts: follow up with primary care doctor within two weeks of discharge follow up with your electrical installation supervisor within two weeks of discharge. follow up with neurologist upon discharge Medications at Discharge Discharge Medications: Stop taking the following medications: Losartan Potassium (Losartan Potassium) 100 MG TABLET ORAL DAILY Amlodipine Besylate (Amlodipine Besylate) 10 MG TABLET ORAL DAILY Atorvastatin Calcium (Lipitor) 10 MG TABLET ORAL DAILY Continue taking these medications: Levothyroxine Sodium (Levothyroxine Sodium) 112 MCG TABLET 1 Tablet ORAL DAILY BEFORE BREAKFAST Comments: Last Taken: 08/22/17 Time: 6:30 AM Paroxetine HCl (Paxil) 20 MG TABLET 2 Tablet ORAL DAILY Comments: Last Taken: 08/22/17 Time: 9:00 AM Calcium (Elemental-Fr Calcarb) (Calcium) 600 MG CALCIUM (1,500 MG) TABLET 1 Tablet ORAL DAILY Comments: NOT GIVEN Donepezil HCl (Aricept) 5 MG TABLET 1 Tablet ORAL Every night Comments: Last Taken: 08/21/17 Time: 9:30 PM Cyanocobalamin (Vitamin B-12) 1,000 MCG TABLET 1 Tablet ORAL DAILY Comments: NOT GIVEN Epinephrine (Epipen) 0.3 MG/0.3 ML AUTO.INJCT 1 Inj INTRAMUSC DAILY as needed for BEE STING Comments: NOT GIVEN Start taking the following new medications: Aspirin (Aspirin*) 81 MG TAB.CHEW 81 Milligram ORAL DAILY Qty = 30 No Refills Comments: Last Taken: 08/22/17 Time: 9:00 AM Atorvastatin Calcium (Atorvastatin Calcium) 80 MG TABLET 80 Milligram ORAL 5 PM Qty = 30 No Refills Comments: Last Taken: 08/21/17 Time: 4:30 PM Copies To: Dav DEMPSEY,Espinoza Bermeo MD Review Statement Documenting Attending: Froy DEMPSEY,Jada
--- NOTE | 2017-08-21 10:43 | ECHOCARDIOGRAM REPORT ---
GANESH BOWLING Age: 77 : 1940 Gender: F Exam Date: 08/20/2017 11:00 Exam Location: 1 [address] Ht (in): 62 Wt (lb): 126 BSA: 1.59 BP: 126 / 84 Ordering Physician: Tawana George MD Referring Physician: Ilia Negron MD Technologist: Tameka Sands [facility] Room Number: [id number] Indications: STROKE Rhythm: Sinus Technical Quality: Fair FINDINGS Left Ventricle Normal size left ventricle. Moderate concentric left ventricular hypertrophy. Normal left ventricular ejection fraction visually estimated at >60%. No obvious regional wall motion abnormalities. Right Ventricle Normal right ventricular size and function. Right Atrium Normal right atrial size. Left Atrium Normal left atrial size. Mitral Valve Mitral valve thickened. Trace mitral regurgitation. Aortic Valve Diffuse thickening (sclerosis) of the aortic valve cusps without reduced excursion. No aortic stenosis. No aortic regurgitation. Tricuspid Valve Tricuspid valve not well visualized, grossly normal. Trace tricuspid regurgitation. No evidence of pulmonary hypertension. No evidence of pulmonary hypertension. No evidence of pulmonary hypertension. Pulmonic Valve Pulmonic valve not well visualized, grossly normal. Trace pulmonic regurgitation. Pericardium No pericardial effusion. Great Vessels Normal size aortic root. CONCLUSIONS Normal size left ventricle. Moderate concentric left ventricular hypertrophy. Normal left ventricular ejection fraction visually estimated at > 60%. No evidence of pulmonary hypertension. Ilia Negron M.D. (Electronically Signed) Final Date: 21 Aug 2017 10:42 MEASUREMENTS (Male / Female) Normal Values 2D ECHO LV Diastolic Diameter PLAX 3.8 cm 4.2 - 5.9 / 3.9 - 5.3 cm LV Systolic Diameter PLAX 1.9 cm 2.1 - 4.0 cm LV Fractional Shortening PLAX 50.0 % 25 - 46 % LV Ejection Fraction 2D Teich 82.0 % IVS Diastolic Thickness 1.4 cm LVPW Diastolic Thickness 1.4 cm LV Relative Wall Thickness 0.7 RV Internal Dim ED PLAX 2.5 cm 1.9 - 3.8 cm LVOT Diameter 1.9 cm Aortic Root Diameter 2.9 cm LA Systolic Diameter LX 3.1 cm 3.0 - 4.0 / 2.7 - 3.8 cm LA Volume 19.0 cm 18 - 58 / 22 - 52 cm Ascending Aorta Diameter 3.3 cm DOPPLER AV Peak Velocity 126.0 cm/s AV Peak Gradient 6.4 mmHg AV Mean Velocity 89.2 cm/s AV Mean Gradient 4.0 mmHg AV Velocity Time Integral 24.2 cm LVOT Peak Velocity 115.0 cm/s LVOT Peak Gradient 5.3 mmHg LVOT Mean Velocity 77.4 cm/s LVOT Mean Gradient 3.0 mmHg LVOT Velocity Time Integral 24.2 cm LVOT Stroke Volume 68.6 cm AV Area Cont Eq vti 2.8 cm AV Area Cont Eq pk 2.6 cm MV Peak Velocity 94.6 cm/s MV Peak Gradient 3.6 mmHg MV Mean Velocity 52.2 cm/s MV Mean Gradient 1.0 mmHg Mitral E Point Velocity 48.4 cm/s Mitral A Point Velocity 79.5 cm/s Mitral E to A Ratio 0.6 MV PHT Velocity 67.0 cm/s MV Deceleration Colbert 177.0 cm/s MV Pressure Half Time 113.6 ms MV Area PHT 1.9 cm MV Deceleration Time 383.0 ms TR Peak Velocity 231.0 cm/s TR Peak Gradient 21.3 mmHg Right Atrial Pressure 5.0 mmHg Pulmonary Artery Systolic Pressu 26.3 mmHg Right Ventricular Systolic Press 26.3 mmHg PV Peak Velocity 112.0 cm/s PV Peak Gradient 5.0 mmHg PV Mean Velocity 78.0 cm/s PV Mean Gradient 3.0 mmHg PV Velocity Time Integral 22.7 cm LV E' Lateral Velocity 9.0 cm/s Mitral E to LV E' Lateral Ratio 5.3 LV E' Septal Velocity 7.6 cm/s Mitral E to LV E' Septal Ratio 6.4
--- NOTE | 2017-08-21 11:52 | PN- Cardiology ---
Subjective Subjective: Feeling well. Left-sided weakness is improving. No palpitations. No chest pain Objective Vital Signs and I&Os Vital Signs Date Time Temp Pulse Resp B/P B/P Pulse O2 O2 Flow FiO2 Mean Ox Delivery Rate 08/21 1400 97.6 76 20 130/70 94 08/21 1217 Room Air 08/21 0704 97.8 65 16 118/84 94 Room Air 08/20 2214 98.3 56 16 118/62 96 Room Air Intake & Output 08/21 1600 08/21 0800 08/21 0000 08/20 1600 08/20 0800 08/20 0000 Intake Total 700 330 220 700 240 200 Output Total 300 250 250 300 350 600 Balance 400 80 -30 400 -110 -400 Intake, Oral 700 330 220 700 240 200 Number 3 Bowel Movements Output, Urine 300 250 250 300 350 600 Patient 139 lb 136 lb Weight Weight Bed scale Bed scale Measurement Method Physical Exam: Gen: NAD HEENT: normal Lungs: clear to auscultation, normal resp. effort Heart: RRR, S1, S2, no murmurs Abdomen: Soft, nontender, no masses Extremities: No clubbing, cyanosis, or edema. Neuro: Alert and oriented x 3, cranial nerves intact. Left upper and lower extremity weakness Current Medications: Current Medications Sig/Patricio Start time Last Medication Dose Route Stop Time Status Admin Acetaminophen 650 MG Q6P PRN 08/18 1914 AC PO Aspirin 81 MG DAILY 08/19 09 AC 08/21 PO 0827 Atorvastatin Calcium 80 MG 1700 08/19 1700 AC 08/21 PO 1624 Donepezil HCl 5 MG QPM 08/20 2100 AC 08/20 PO 2004 Enoxaparin Sodium 40 MG DAILY 08/19 09 AC 08/21 SC 0827 Ibuprofen 600 MG Q6P PRN 08/18 1914 AC PO Levothyroxine Sodium 0.112 MG DAILY AC 08/19 0700 AC 08/21 PO 0542 Oxycodone/ 2 TAB Q6P PRN 08/18 1914 AC Acetaminophen PO Paroxetine HCl 40 MG DAILY 08/20 1329 AC 08/21 PO 0827 Polyethylene Glycol 17 GM DAILY 08/21 09 AC 08/21 PO 0929 Senna/Docusate Sodium 2 TAB DAILY 08/21 09 AC 08/21 PO 0933 Results Last 48 Hrs of Labs/Mics: Laboratory Tests 08/20/17 0635: Anion Gap 8, Estimated GFR > 60, BUN/Creatinine Ratio 32.9 H, CBC w Diff NO MAN DIFF REQ, RBC 4.32, MCV 92.8, MCH 30.5, MCHC 32.9 L, RDW 15.0 H, MPV 8.1, Gran % 41.9 L, Lymphocytes % 39.3, Monocytes % 13.2 H, Eosinophils % 4.8, Basophils % 0.8, Absolute Granulocytes 2.0, Absolute Lymphocytes 1.9, Absolute Monocytes 0.6, Absolute Eosinophils 0.2, Absolute Basophils 0 Recent Imaging Studies: Echocardiogram August 21, 2017: Normal size left ventricle. Moderate concentric left ventricular hypertrophy. Normal left ventricular ejection fraction visually estimated at > 60%. No evidence of pulmonary hypertension. Assessment/Plan Assessment/Plan Assessment: 1. Hypertension 2. Hypothyroidism 3. Hyperlipidemia 4. Acute right thalamic CVA 5. 1 episode of SVT noted on telemetry. No atrial fibrillation seen Plan: * Continue aspirin and statin * Follow up in the office 2 weeks after discharge Continue telemetry? Yes
[2017-08-21] MEDS ORDERED: ASPIRIN81 M4 PO (12:51)
[2017-08-21 14:00] VITALS: BP 130/70
--- NOTE | 2017-08-21 14:19 | Patient Discharge Instructions ---
Discharge Instructions General Discharge Information You were seen/treated for: Stroke You had these procedures: Echocardiogram Watch for these problems: difficulty speaking weakess/numbness of extremities Special Instructions: follow up with primary care doctor within two weeks of discharge follow up with your facility manager within two weeks of discharge. follow up with neurologist upon discharge Acute Coronary Syndrome Inclusion Criteria At DC or during hospital stay patient has or had the following: ACS DIAGNOSIS No Discharge Core Measures Meds if any: Prescribed or Continued at Discharge Meds if any: NOT Prescribed or Continued at Discharge Congestive Heart Failure Inclusion Criteria At DC or during hospital stay patient has or had the following: CHF DIAGNOSIS No Discharge Core Measures Meds if any: Prescribed or Continued at Discharge Meds if any: NOT Prescribed or Continued at Discharge Cerebrovascular accident Inclusion Criteria At DC or during hospital stay patient has or had the following: CVA/TIA Diagnosis Yes Discharge Core Measures Meds if any: Prescribed or Continued at Discharge Antithrombotic Yes Statin (required if LDL =>70) Yes Meds if any: NOT Prescribed or Continued at Discharge Venous thromboembolism Inclusion Criteria VTE Diagnosis No VTE Type NONE VTE Confirmed by (Test) NONE Discharge Core Measures - Per Current guidelines, there needs to be overlap - treatment for the first 5 days of Warfarin therapy. - If discharged on Warfarin prior to 5 days of - overlap therapy, the patient will need to be - assessed for post discharge needs including - *Post discharge parental anticoagulation - *Warfarin and/or parental anticoagulation education - *Follow up date to check INR post discharge At least 5 days overlap therapy as Inpatient No Meds if any: Prescribed or Continued at Discharge Note: Overlap Therapy is Warfarin and Anticoagulant Meds if any: NOT Prescribed or Continued at Discharge
--- NOTE | 2017-08-21 19:28 | Cons- Neurology ---
General Information and HPI Consulting Request Date of Consult: 08/21/17 Requested By: Froy DEMPSEY,Jada & Valentin Amos MD Reason for Consult: Inpatient rehab Source of Information: patient, family Exam Limitations: no limitations History of Present Illness: 77-year-old right-handed woman with a right thalamic/basal ganglia ischemic stroke and left hemiparesis. MRI demonstrated the acute infarction. Echo with bubble study showed moderate concentric left ventricular hypertrophy and a normal left ventricular ejection fraction of 60%. Neurology was consulted and she was started on high-dose statin and aspirin. She was seated in the bedside chair time of my exam. She states that she just walked with the physical therapist out into the hallway with a rolling walker. She is and lives alone. there are several steps to enter her home with a railing. There is a 1 level set up once inside. She has 7 adult children , some of whom live in the area. Family is supportive. She was independent with mobility and self-care, both basic and instrumental ADLs prior to admission. Drives a car. Her primary physician is Dr. Guadarrama Allergies/Medications Allergies: Coded Allergies: glycerin (UNKNOWN 08/18/17) venom-honey bee (UNKNOWN 08/18/17) Home Med List: Amlodipine Besylate 10 MG TABLET 1 TAB PO DAILY HEART (Reported) Aspirin (Aspirin*) 81 MG TAB.CHEW 81 MG PO DAILY heart healthy Atorvastatin Calcium (Lipitor) 10 MG TABLET 1 TAB PO DAILY CHOLESTEROL ( Reported) Calcium (Elemental-Fr Calcarb) (Calcium) 600 MG CALCIUM (1,500 MG) TABLET 1 TAB PO DAILY SUPPLEMENT (Reported) Cyanocobalamin (Vitamin B-12) 1,000 MCG TABLET 1 TAB PO DAILY VITAMIN SUPPORT (Reported) Donepezil HCl (Aricept) 5 MG TABLET 1 TAB PO QPM DEMENTIA (Reported) Epinephrine (Epipen) 0.3 MG/0.3 ML AUTO.INJCT 1 INJ IM DAILY PRN BEE STING ( Reported) Levothyroxine Sodium 112 MCG TABLET 1 TAB PO DAILY AC THYROID (Reported) Losartan Potassium 100 MG TABLET 1 TAB PO DAILY HEART (Reported) Paroxetine HCl (Paxil) 20 MG TABLET 2 TAB PO DAILY MENTAL HEALTH (Reported) Current Medications: Current Medications Sig/Patricio Start time Last Medication Dose Route Stop Time Status Admin Acetaminophen 650 MG Q6P PRN 08/18 1914 AC PO Aspirin 81 MG DAILY 08/19 09 AC 08/21 PO 0827 Atorvastatin Calcium 80 MG 1700 08/19 1700 AC 08/21 PO 1624 Donepezil HCl 5 MG QPM 08/20 2100 AC 08/20 PO 2004 Enoxaparin Sodium 40 MG DAILY 08/19 0900 AC 08/21 SC 0827 Ibuprofen 600 MG Q6P PRN 08/18 1914 AC PO Levothyroxine Sodium 0.112 MG DAILY AC 08/19 0700 AC 08/21 PO 0542 Oxycodone/ 2 TAB Q6P PRN 08/18 1914 AC Acetaminophen PO Paroxetine HCl 40 MG DAILY 08/20 1329 AC 08/21 PO 0827 Polyethylene Glycol 17 GM DAILY 08/21 09 AC 08/21 PO 0929 Senna/Docusate Sodium 2 TAB DAILY 08/21 09 AC 08/21 PO 0933 Review of Systems Review of Systems: She denies headache, dizziness, chewing or swallowing difficulties, chest pain palpitations or shortness of breath. She has been sleeping well. Her appetite is good. No bowel or bladder complaints. Past History Travel History Traveled to [place] past 21 day No Medical History Blood Transfusion Hx: No Neurological: dementia, TRANSIENT AMNESIA Cardiovascular: hypertension, hyperlipidemia Gastrointestinal: chronic diarrhea Renal: urinary incontinence Endocrine: hypothyroidism Surgical History Surgical History: 1 Family History Relations & Conditions If Any: MOTHER Pulmonary embolism Psychosocial History Where Do You Live? Home Who Do You Live With? self Services at Home: None Primary Language: Setswana Smoking Status: Former Smoker (20 year hx) ETOH Use: occasional use Illicit Drug Use: denies illicit drug use Functional Ability ADLs Independent: dressing, eating, toileting, bathing. Ambulation: independent IADLs Independent: shopping, housework, finances, food prep, telephone, transportation , medication admin. Exam & Diagnostic Data Vital Signs and I&O Vital Signs Date Time Temp Pulse Resp B/P B/P Pulse O2 O2 Flow FiO2 Mean Ox Delivery Rate 08/21 1400 97.6 76 20 130/70 94 08/21 1217 Room Air 08/21 0704 97.8 65 16 118/84 94 Room Air 08/20 2214 98.3 56 16 118/62 96 Room Air Intake & Output 08/21 1600 08/21 0800 08/21 0000 Intake Total 700 330 220 Output Total 300 250 250 Balance 400 80 -30 Intake, Oral 700 330 220 Number 3 Bowel Movements Output, Urine 300 250 250 Patient 139 lb Weight Weight Bed scale Measurement Method Physical Exam: She was awake alert and seated in the bedside chair head normocephalic atraumatic neck supple extremities without clubbing cyanosis or edema neurologic exam: She was awake, alert, oriented to person, place, time, and situation. speech was mildly hypophonic but fluent and well articulated Cranial nerves: Visual santos full to confrontation full extraocular motility Very mild left lower facial weakness midline tongue protrusion grossly intact hearing Motor: Normal muscle bulk and tone, with no abnormal involuntary movements Right-sided arm and leg strength normal Mild left hemiparesis with 4 to 4+ out of 5 strength and mildly impaired rapid alternating movements, [id number], and [id number] maneuvers on the left. sensation of light touch was intact with no sensory extinction. gait was not tested. Assessment/Plan Assessment: Mobility and self-care dysfunction secondary to ischemic stroke Recommendations: at her current functional level she is an excellent candidate for hospital- based acute level inpatient rehabilitation. I recommend, and the patient and family are interested in the [facility] [place] Consult Acknowledgment - Thank you for your consult request.
[2017-08-21 22:21] VITALS: BP 152/80
[2017-08-22 06:32] VITALS: BP 170/80
--- NOTE | 2017-08-22 08:17 | PN- Housestaff ---
Ting DEMPSEY,Monique 08/22/17 0816: Subjective Follow-up For: Right Thalamic CVA Tele-Events Since Last Visit: Sinus Ervin to NSR HR: 59-77 Subjective: Patient was seen and examined today. Patient reports improvement in her left lower extremity weakness. States she is ready to be discharged. Patient denies any other complaints. Denies chest pain, palpitations, SOB, abdominal pain, n/v, fever/chills, dysphagia. Denies weakness or numbness in other extremities. Patient reports numbness and tingling occasionally when she has to urinate- patient has a neurostimulator for her bladder. No acute events overnight. Review of Systems Constitutional: Reports: see HPI. Objective Last 24 Hrs of Vital Signs/I&O Vital Signs Date Time Temp Pulse Resp B/P B/P Pulse O2 O2 Flow FiO2 Mean Ox Delivery Rate 08/22 1248 99.0 64 20 156/84 08/22 1046 156/84 08/22 0632 99.0 64 20 170/80 96 Room Air 08/21 2221 98.3 68 22 152/80 93 Intake & Output 08/22 1600 08/22 0800 08/22 0000 Intake Total 200 360 Output Total Balance 200 360 Intake, Oral 200 360 Patient 135 lb Weight Physical Exam General Appearance: Alert, Oriented X3, Cooperative, No Acute Distress HEENT: Atraumatic, PERRLA, EOMI, Mucous Membr. moist/pink Cardiovascular: Regular Rate, Normal S1, Normal S2, No Murmurs Lungs: Clear to Auscultation, Normal Air Movement Abdomen: Normal Bowel Sounds, Soft, No Tenderness Neurological: Normal Speech, Normal Tone, Sensation Intact, Cranial Nerves 3-12 NL, Reflexes 2+, LLE strength 4/5. Remainder of strength in extremities 5/5. Extremities: No Clubbing, No Cyanosis, No Edema, Normal Pulses, No Tenderness/ Swelling Vascular: Normal Pulses, Pulses Symmetrical Current Medications: Current Medications Sig/Patricio Start time Last Medication Dose Route Stop Time Status Admin Acetaminophen 650 MG Q6P PRN 08/18 1915 DCD PO Aspirin 81 MG DAILY 08/19 0900 DCD 08/22 PO 0906 Atorvastatin Calcium 80 MG 1700 08/19 1700 DCD 08/21 PO 1624 Donepezil HCl 5 MG QPM 08/20 2100 DCD 08/21 PO 2130 Enoxaparin Sodium 40 MG DAILY 08/19 09 DCD 08/22 SC 0906 Ibuprofen 600 MG Q6P PRN 08/18 1914 DCD PO Levothyroxine Sodium 0.112 MG DAILY AC 08/19 0700 DCD 08/22 PO 0635 Oxycodone/ 2 TAB Q6P PRN 08/18 1914 DCD Acetaminophen PO Paroxetine HCl 40 MG DAILY 08/20 1329 DCD 08/22 PO 0906 Polyethylene Glycol 17 GM DAILY 08/21 09 DCD 08/21 PO 0929 Senna/Docusate Sodium 2 TAB DAILY 08/21 09 DCD 08/21 PO 0933 Assessment/Plan Assessment: Patient is a 77-year-old female with a PMH significant for HTN, HLD, hypothyroidism, depression who presented complaining of left lower extremity weakness and multiple falls. 1. Basal ganglia CVA. MRI confirms ischemia within the right basal ganglia. ECHO with bubble study showing concentric LVH and LVEF of 60% -Continue aspirin, and high dose statin -Patient will be discharged today to acute rehab for physical therapy, -follow up with neurology and cardiology outpatient in 1-2 weeks #Chronic medical problems -Resume home medications Diet: Heart healthy DVT prophylaxis: Lovenox, Alps CODE STATUS: Full code Dispo: discharge to [facility] today Problem List: 1. Stroke (cerebrum) Pain Ratin Pain Location: n/a Pain Goal: Remain pain free Pain Plan: tylenol PRN Tomorrow's Labs & Rationales: none - discharge today Jada Mcduffie MD 08/22/17 1112: Attending MD Review Statement Attending Statement Attending MD Statement: examined this patient, discuss w/resident/PA/SPRAYER LEATHER, agreed w/resident/PA/SPRAYER LEATHER, reviewed EMR data (avail) Attending Assessment/Plan: Patient is doing well today. She reports that she feels a slight paresthesia in her right hand sometimes when she has to urinate. She is otherwise well and improving. Will continue ASA and statin, discharge to acute rehab today, continue home medications.
[2017-08-22] MEDS ORDERED: ATORVASTATIN CA80 M1 PO (10:41)
[2017-08-22 10:46] VITALS: BP 156/84
[2017-08-22 12:48] VITALS: BP 156/84
== END 2017-08-22 14:00 | DRG 65 ==
LOC: ERH 13:55 → ERHI 17:40 → 1NO 17:40 → ENRESERV 18:10 → ENTRNSPT 19:40 → 1NO 19:41 → EDTRNSPT 19:49 → EDTRNSPTSTS 19:49 → CMPTRNSPT 19:54 → 1NO 20:04 → ENPENDDIS 08-22 11:46 → 1NO 08-22 14:00 → ENTRNSPT 08-22 14:10 → EDTRNSPTSTS 08-22 14:21 → EDTRNSPT 08-22 14:21 → CMPTRNSPT 08-22 14:37
PROVIDERS: Emergency Medicine; Student in an Organized Health Care Education/Training Program
DX: I63.8 Other cerebral infarction (principal); I47.1 Supraventricular tachycardia; F03.90 Unspecified dementia, unspecified severity, without behavioral disturbance, psychotic disturbance, mood disturbance, and anxiety; I69.354 Hemiplegia and hemiparesis following cerebral infarction affecting left non-dominant side; E03.9 Hypothyroidism, unspecified; R53.1 Weakness; I10 Essential (primary) hypertension; R41.3 Other amnesia; R26.81 Unsteadiness on feet; F32.9 Major depressive disorder, single episode, unspecified; M81.0 Age-related osteoporosis without current pathological fracture; R32 Unspecified urinary incontinence; E78.5 Hyperlipidemia, unspecified; Z91.81 History of falling; R00.0 Tachycardia, unspecified
CPT/HCPCS: 1NSP; 70551; 86317; 87798; 36415; 36592; 81003; 82436; 93005; 93010; 93306; 96105-GN; 97110-GO; 97116-GO; 97162-GP; 97166-GO; J1650; J3490